=== PATIENT | male | born 1950 | race Caucasian/White ===

== ENCOUNTER 2017-05-23 09:07 | Outpatient (CLI) | payer MEDICARE, MEDICAID ==
[2017-05-23 17:57] LABS: BASOPHILS # (AUTO) 0.1 10^3/uL (0.0-0.1); BASOPHILS % (AUTO) 0.6 %; EOSINOPHILS # (AUTO) 0.1 10^3/uL (0.0-0.7); HCT - HEMATOCRIT 41.1 % (42.0-52.0); HGB - HEMOGLOBIN 14.3 g/dL (14.0-18.0); LYMPHOCYTES # (AUTO) 4.4 10^3/uL (1.5-3.5); LYMPHOCYTES % (AUTO) 41.2 %; MEAN CORPUSCULAR HEMOGLOBIN 31.4 pg (27.0-31.0); MEAN CORPUSCULAR HGB CONC 34.8 g/dL (32.0-36.0); MEAN CORPUSCULAR VOLUME 90.4 fL (80.0-94.0); MEAN PLATELET VOLUME 9.4 fL (7.4-11.4); MONOCYTES # (AUTO) 0.7 10^3/uL (0.0-1.0); MONOCYTES % (AUTO) 6.9 %; NEUTROPHILS # (AUTO) 5.4 10^3/uL (1.5-6.6); NEUTROPHILS % (AUTO) 50.3 %; RED BLOOD COUNT 4.55 10^6/uL (4.70-6.10); RED CELL DISTRIBUTION WIDTH 14.2 % (12.0-15.0); UNCORRECTED WHITE BLOOD COUNT 10.7 x10^3/uL; WHITE BLOOD COUNT 10.7 x10^3/uL (4.8-10.8)
[2017-05-23 18:16] LABS: BILIRUBIN,TOTAL 0.9 mg/dL (0.2-1.0); CALCIUM 9.5 mg/dL (8.5-10.3); CREATININE 1.1 mg/dL (0.6-1.2); POTASSIUM 4.1 mmol/L (3.5-5.0); TOTAL PROTEIN 7.1 g/dL (6.7-8.2)
== END 2017-05-23 09:08 | disposition home or self-care (01) ==
LOC: LAB.F 09:07
PROVIDERS: ATTEND Physician Assistant Medical
DX: I10 Essential (primary) hypertension (principal)
CPT/HCPCS: 36415; 80053; 85025

== ENCOUNTER 2018-08-14 11:29 | Outpatient (CLI) | payer MEDICARE, MEDICAID ==
[2018-08-14 17:37] LABS: BASOPHILS # (AUTO) 0.1 10^3/uL (0.0-0.1); BASOPHILS % (AUTO) 0.7 %; EOSINOPHILS # (AUTO) 0.1 10^3/uL (0.0-0.7); EOSINOPHILS % (AUTO) 0.7 %; HGB - HEMOGLOBIN 17.2 g/dL (14.0-18.0); LYMPHOCYTES # (AUTO) 4.6 10^3/uL (1.5-3.5); MEAN CORPUSCULAR HEMOGLOBIN 32.9 pg (27.0-31.0); MEAN CORPUSCULAR HGB CONC 33.3 g/dL (32.0-36.0); MEAN CORPUSCULAR VOLUME 98.7 fL (80.0-94.0); MEAN PLATELET VOLUME 9.5 fL (7.4-11.4); MONOCYTES # (AUTO) 0.6 10^3/uL (0.0-1.0); MONOCYTES % (AUTO) 5.1 %; NEUTROPHILS # (AUTO) 6.1 10^3/uL (1.5-6.6); NEUTROPHILS % (AUTO) 53.5 %; PLT - PLATELET COUNT 200 10^3/uL (130-450); RED BLOOD COUNT 5.24 10^6/uL (4.70-6.10); RED CELL DISTRIBUTION WIDTH 14.6 % (12.0-15.0); WHITE BLOOD COUNT 11.5 x10^3/uL (4.8-10.8)
[2018-08-14 18:39] LABS: ALBUMIN 4.3 g/dL (3.2-5.5); ALBUMIN/GLOBULIN RATIO 1.5 (1.0-2.2); CALCIUM 9.1 mg/dL (8.5-10.3); CREATININE 1.2 mg/dL (0.6-1.2); TOTAL PROTEIN 7.1 g/dL (6.7-8.2)
== END 2018-08-14 11:30 | disposition home or self-care (01) ==
LOC: LAB.F 11:29
PROVIDERS: ATTEND Registered Nurse
DX: D64.9 Anemia, unspecified (principal); I10 Essential (primary) hypertension
CPT/HCPCS: 36415; 80053; 85025

== ENCOUNTER 2018-09-03 15:24 | Outpatient (CLI) | payer MEDICARE, MEDICAID ==
[2018-09-03 19:14] LABS: FOLATE 12.42 ng/mL (5.90 - >24.8)
[2018-09-03 19:35] LABS: HB2 TOTAL 17.6 g/dL; HEMOGLOBIN A1C 0.74 g/dL
== END 2018-09-03 15:25 | disposition home or self-care (01) ==
LOC: LAB.F 15:24
PROVIDERS: ATTEND Registered Nurse
DX: R73.9 Hyperglycemia, unspecified (principal); R71.8 Other abnormality of red blood cells
CPT/HCPCS: 36415; 82607; 82746; 83036

== ENCOUNTER 2019-10-01 08:24 | Outpatient (CLI) | payer MEDICAID, MEDICARE ==
[2019-10-01 10:28] LABS: BASOPHILS # (AUTO) 0.1 10^3/uL (0.0-0.1); BASOPHILS % (AUTO) 0.8 %; EOSINOPHILS # (AUTO) 0.1 10^3/uL (0.0-0.7); EOSINOPHILS % (AUTO) 0.9 %; HGB - HEMOGLOBIN 16.7 g/dL (14.0-18.0); LYMPHOCYTES # (AUTO) 3.2 10^3/uL (1.5-3.5); LYMPHOCYTES % (AUTO) 36.1 %; MEAN CORPUSCULAR HEMOGLOBIN 33.6 pg (27.0-31.0); MEAN CORPUSCULAR HGB CONC 34.5 g/dL (32.0-36.0); MEAN CORPUSCULAR VOLUME 97.4 fL (80.0-94.0); MEAN PLATELET VOLUME 11.2 fL (7.4-11.4); MONOCYTES # (AUTO) 0.7 10^3/uL (0.0-1.0); MONOCYTES % (AUTO) 8.3 %; NEUTROPHILS # (AUTO) 4.7 10^3/uL (1.5-6.6); NEUTROPHILS % (AUTO) 53.3 %; PLT - PLATELET COUNT 158 10^3/uL (130-450); RED BLOOD COUNT 4.97 10^6/uL (4.70-6.10); RED CELL DISTRIBUTION WIDTH 12.5 % (12.0-15.0); WHITE BLOOD COUNT 8.9 x10^3/uL (4.8-10.8)
[2019-10-01 10:43] LABS: ALBUMIN 4.1 g/dL (3.2-5.5); ALBUMIN/GLOBULIN RATIO 1.5 (1.0-2.2); ALKALINE PHOSPHATASE 43 IU/L (42-121); ALT ALANINE AMINOTRANSFERASE 14 IU/L (10-60); AST ASPARTATE AMINOTRANSFERASE 29 IU/L (10-42); BILIRUBIN,TOTAL 1.4 mg/dL (0.2-1.0); BUN - BLOOD UREA NITROGEN 9 mg/dL (6-20); CALCIUM 9.1 mg/dL (8.5-10.3); CARBON DIOXIDE - CO2 28 mmol/L (21-32); CHLORIDE 98 mmol/L (101-111); CHOL/HDL RATIO 6.3 (<5.0); CHOLESTEROL 194 mg/dL; CREATININE 1.2 mg/dL (0.6-1.2); GFR - MDRD 60 (>89); GLUCOSE 131 mg/dL (70-100); HDL CHOLESTEROL 31 mg/dL; LDL CHOLESTEROL,CALCULATED 138 mg/dL; LDL/HDL RATIO 4.5 (<3.6); SODIUM 135 mmol/L (135-145); TOTAL PROTEIN 6.8 g/dL (6.7-8.2); VLDL CHOLESTEROL 25 mg/dL
[2019-10-01 10:55] LABS: HB2 TOTAL 17.3 g/dL; HEMOGLOBIN A1C 0.75 g/dL; HEMOGLOBIN A1C % 6.1 % (4.6-6.2)
== END 2019-10-01 08:25 | disposition home or self-care (01) ==
LOC: LAB.S 08:24
PROVIDERS: ATTEND Registered Nurse
DX: I10 Essential (primary) hypertension (principal); R73.03 Prediabetes; D75.89 Other specified diseases of blood and blood-forming organs; Z13.6 Encounter for screening for cardiovascular disorders
CPT/HCPCS: 36415; 80053; 80061; 83036; 83721; 85025

== ENCOUNTER 2020-01-10 09:35 | Outpatient (CLI) | payer MEDICARE | END 2020-01-10 09:36 | disposition critical access hospital (66) | LOC: EMS 09:35 | PROVIDERS: ATTEND Surgery | DX: R06.00 Dyspnea, unspecified (principal); R05 Cough; R61 Generalized hyperhidrosis | CPT/HCPCS: A0425; A0427 ==

== ENCOUNTER 2020-01-10 09:55 | Inpatient (IN) | payer MEDICARE ==
[2020-01-10] MEDS ORDERED: IPRATROPIUM/ALBUTEROL 3 ML NEB INH STA (10:03)
[2020-01-10] MEDS ORDERED: cefTRIAXone 1 GM VIAL IVP STA (10:09)
[2020-01-10] MEDS ORDERED: MORPHINE 2 MG/ML CARPUJECT IVP STA ×2 (10:09→10:59)
--- NOTE | 2020-01-10 10:16 | XRAY Report ---
Reason: chest pain Procedure Date: 01/10/2020 Accession Number: [id number] / [id number] Procedure: XR - Chest 1 View X-Ray CPT Code: 51246 Final Report FULL RESULT: PROCEDURE: Chest 1 View X-Ray INDICATIONS: chest pain TECHNIQUE: One view of the chest was acquired. COMPARISON: None. FINDINGS: Surgical changes and devices: None. No pneumothorax identified. Near complete opacification of the right hemithorax is probably due to large pleural effusion, and associated leftward tracheal deviation Left lung appears clear. Mediastinum: Mediastinal contours appear normal. Heart size is normal. Bones and chest wall: No suspicious bony lesions. Overlying soft tissues appear unremarkable. Bilateral shoulder joint degeneration. IMPRESSION: Near complete opacification of the right hemithorax presumably due to large pleural effusion with adjacent atelectasis and/or consolidation. Cannot exclude underlying neoplasm. Reviewed by: Boby Ling MD on 01/10/2020 10:14 AM PDT Approved by: Boby Ling MD on 01/10/2020 10:14 AM PDT Station ID: [id number]
[2020-01-10 10:29] LABS: BASOPHILS # (AUTO) 0.1 10^3/uL (0.0-0.1); BASOPHILS % (AUTO) 0.4 %; EOSINOPHILS % (AUTO) 0.2 %; LYMPHOCYTES # (AUTO) 2.6 10^3/uL (1.5-3.5); LYMPHOCYTES % (AUTO) 13.9 %; MEAN CORPUSCULAR HEMOGLOBIN 34.2 pg (27.0-31.0); MEAN CORPUSCULAR HGB CONC 35.4 g/dL (32.0-36.0); MEAN CORPUSCULAR VOLUME 96.8 fL (80.0-94.0); MEAN PLATELET VOLUME 10.7 fL (7.4-11.4); MONOCYTES # (AUTO) 1.3 10^3/uL (0.0-1.0); NEUTROPHILS # (AUTO) 14.3 10^3/uL (1.5-6.6); NEUTROPHILS % (AUTO) 77.1 %; PLT - PLATELET COUNT 310 10^3/uL (130-450); RED BLOOD COUNT 5.26 10^6/uL (4.70-6.10); RED CELL DISTRIBUTION WIDTH 12.2 % (12.0-15.0); WHITE BLOOD COUNT 18.5 x10^3/uL (4.8-10.8)
[2020-01-10 10:41] LABS: ALBUMIN 4.2 g/dL (3.2-5.5); ALBUMIN/GLOBULIN RATIO 1.4 (1.0-2.2); CALCIUM 9.2 mg/dL (8.5-10.3); CREATININE 1.8 mg/dL (0.6-1.2); TOTAL PROTEIN 7.3 g/dL (6.7-8.2)
[2020-01-10] MEDS ORDERED: SODIUM CHLORIDE 0.9% 1,000 ML IV STA ×2 (10:58→11:42)
[2020-01-10] MEDS ORDERED: KETOROLAC 30 MG/ML VIAL IVP STA (10:59)
[2020-01-10] MEDS ORDERED: ALBUTEROL NEB 2.5 MG/3 ML INH STA (10:59)
[2020-01-10] MEDS ORDERED: VANCOMYCIN INJ 1.5 GM in SODIUM CHLORIDE 0.9% 500 ML IV STA (11:01)
[2020-01-10] MEDS ORDERED: VANCOMYCIN INJ 1.5 GM in SODIUM CHLORIDE 0.9% 500 ML IV ONE (11:21)
--- NOTE | 2020-01-10 11:30 | XRAY Report ---
Reason: post thoracentesis Procedure Date: 01/10/2020 Accession Number: [id number] / [id number] Procedure: XR - Chest 1 View X-Ray CPT Code: 09923 Final Report FULL RESULT: PROCEDURE: Chest 1 View X-Ray INDICATIONS: post thoracentesis TECHNIQUE: One view of the chest was acquired. COMPARISON: Chest radiograph dated earlier same day FINDINGS: Surgical changes and devices: None. Decrease in previous right-sided large pleural effusion. There is scattered atelectasis and no pneumothorax. Left lung appears clear Mediastinum: Mediastinal contours appear normal. Heart size is normal. Bones and chest wall: No suspicious bony lesions. Overlying soft tissues appear unremarkable. IMPRESSION: No pneumothorax, status post right thoracentesis Reviewed by: Boby Ling MD on 01/10/2020 11:29 AM PDT Approved by: Boby Ling MD on 01/10/2020 11:29 AM PDT Station ID: [id number]
[2020-01-10] MEDS ORDERED: ONDANSETRON 4 MG/2 ML VIAL IVP PRN (11:43)
--- NOTE | 2020-01-10 11:44 | ED Physician Documentation ---
PD HPI URI - Stated complaint Stated Complaint: DIFFICULTY BREATHING - Chief complaint Chief Complaint: Resp - History obtained from History obtained from: Patient, EMS - History of Present Illness Timing - onset: How many weeks ago (2) Timing duration: Weeks (2) Timing details: Gradual onset, Still present (worsening despite course Zpack, and significantly worse the past 2-3 days.) Associated symptoms: Chills, Dry cough, Chest pain (right chest), Dyspnea. No: Fever, Nasal congestion, NVD, Bilateral edema Contributing factors: No: Sick contact, Travel, Immunocompromised, COPD / asthma Improves by: No: Medication (given Rx Zpak by PMD without improvement. No MDI nor steroids.) Worsened by: Activity, Breathing Similar symptoms before: Has not had sx before Recently seen: Clinic (a week ago and Rx Zpak.) Review of Systems Constitutional: reports: Chills, Myalgias, Fatigue, Weight Loss (just in past 2 weeks, poor intake/appetite). denies: Fever Ears: denies: Ear pain Nose: denies: Rhinorrhea / runny nose, Congestion Throat: denies: Sore throat Cardiac: reports: Chest pain / pressure. denies: Pedal edema, Calf pain Respiratory: reports: Dyspnea, Cough, Wheezing GI: reports: Nausea. denies: Abdominal Pain, Vomiting, Diarrhea : denies: Dysuria, Frequency Skin: denies: Rash, Lesions Neurologic: reports: Generalized weakness. denies: Focal weakness, Numbness, Near syncope, Altered mental status, Headache PD PAST MEDICAL HISTORY - Past Medical History Cardiovascular: None Respiratory: None Neuro: None Endocrine/Autoimmune: None - Present Medications Home Medications: Ambulatory Orders Medication Instructions Recorded Confirmed Albuterol Sulfate [Proair Hfa 17 gm INH Q4H PRN 01/10/20 01/10/20 Inhaler] Gabapentin 1,200 mg PO QPM 01/10/20 01/10/20 Metoprolol Succinate [Toprol Xl] 100 mg PO DAILY 01/10/20 01/10/20 lisinopriL [Lisinopril] 30 mg PO DAILY 01/10/20 01/10/20 - Allergies Allergies/Adverse Reactions: Allergies Allergy/AdvReac Type Severity Reaction Status Date / Time No Known Drug Allergies Allergy Verified 01/10/20 10:09 - Living Situation Living Situation: reports: Alone Living Arrangement: reports: At home - Social History Smoking Status: Former smoker Does the pt drink ETOH?: No Does the pt have substance abuse?: No - Family History Family history: denies: CAD PD ED PE NORMAL - Vitals Vital signs reviewed: Yes - General General: Alert and oriented X 3, Well developed/nourished, Other (He appears in considerable distress with tachypnea and partial sentence dyspnea. He is diaphoretic and pale and has moderate work of breathing. There are diffuse expiratory wheezes to some degree though the right lung field is significantly decreased at the bases.) - HEENT HEENT: Pharynx benign - Neck Neck: Supple, no meningeal sign, No adenopathy - Cardiac Cardiac: No: RRR (regular but tachycardic) - Respiratory Respiratory: No: Clear bilaterally (Wheezes largely on the left but some on the right and diminished breath sounds significantly on the right. There is dullness to percussion on the right base.) - Abdomen Abdomen: Soft, Non tender - Back Back: No CVA TTP - Derm Derm: No: Normal color (pale), Warm and dry (diaphoretic) - Extremities Extremities: No tenderness to palpate, Normal ROM s pain, No edema, No calf tenderness / cord - Neuro Neuro: Alert and oriented X 3, No motor deficit, No sensory deficit, Normal speech Results - Vitals Vitals: Vital Signs - 24 hr 01/10/20 01/10/20 01/10/20 10:04 10:10 10:34 Temperature 95.4 C H Heart Rate 106 H 98 102 H Respiratory 26 H 21 26 H Rate Blood Pressure 151/141 H 143/90 H O2 Saturation 89 L 96 01/10/20 01/10/20 01/10/20 10:40 10:50 11:20 Temperature Heart Rate 92 85 83 Respiratory 22 18 14 Rate Blood Pressure 129/68 120/73 105/75 O2 Saturation 96 96 97 01/10/20 01/10/20 11:22 11:30 Temperature Heart Rate 79 80 Respiratory 15 14 Rate Blood Pressure 97/66 O2 Saturation 96 Oxygen O2 Source Nasal cannula Oxygen Flow Rate 4 - EKG (time done) 10:04 Rate: Rate (enter#) (105) Rhythm: Atrial fibrillation [place]: Normal Ischemia: Normal ST segments, Non specific changes. No: ST elevation c/w ischemia, ST depression Compare to prior EKG: Old EKG unavailable - Labs Labs: Microbiology 01/10/20 10:48 Body Fluid Culture - Preliminary Other - Pleura, R Lung Laboratory Tests 01/10/20 01/10/20 01/10/20 10:20 10:20 10:20 WBC 18.5 H RBC 5.26 Hgb 18.0 Hct 50.9 MCV 96.8 H MCH 34.2 H MCHC 35.4 RDW 12.2 Plt Count 310 MPV 10.7 Neut # (Auto) 14.3 H Lymph # (Auto) 2.6 [place] # (Auto) 1.3 H Eos # (Auto) 0.0 Baso # (Auto) 0.1 Absolute Nucleated RBC 0.00 Nucleated RBC % 0.0 PT INR Sodium 125 L Potassium 5.0 Chloride 84 L Carbon Dioxide 20 L Anion Gap 21.0 H BUN 35 H Creatinine 1.8 H Estimated GFR (MDRD) 38 L Glucose 177 H Lactic Acid Calcium 9.2 Total Bilirubin 2.0 H AST 42 ALT 22 Alkaline Phosphatase 60 Troponin I High Sens 18.4 B-Natriuretic Peptide Total Protein 7.3 Albumin 4.2 Globulin 3.1 Albumin/Globulin Ratio 1.4 Lipase 79 H Fluid Source Fluid Color Fluid Clarity Fluid WBC Fluid RBC Fluid Neutrophils % Fluid Lymphocytes % Fluid Monocytes % Fluid Macrophages % 01/10/20 01/10/20 01/10/20 10:20 10:20 10:20 WBC RBC Hgb Hct MCV MCH MCHC RDW Plt Count MPV Neut # (Auto) Lymph # (Auto) [place] # (Auto) Eos # (Auto) Baso # (Auto) Absolute Nucleated RBC Nucleated RBC % PT 14.2 H INR 1.3 H Sodium Potassium Chloride Carbon Dioxide Anion Gap BUN Creatinine Estimated GFR (MDRD) Glucose Lactic Acid 4.5 H* Calcium Total Bilirubin AST ALT Alkaline Phosphatase Troponin I High Sens B-Natriuretic Peptide 210 H Total Protein Albumin Globulin Albumin/Globulin Ratio Lipase Fluid Source Fluid Color Fluid Clarity Fluid WBC Fluid RBC Fluid Neutrophils % Fluid Lymphocytes % Fluid Monocytes % Fluid Macrophages % 01/10/20 10:48 WBC RBC Hgb Hct MCV MCH MCHC RDW Plt Count MPV Neut # (Auto) Lymph # (Auto) [place] # (Auto) Eos # (Auto) Baso # (Auto) Absolute Nucleated RBC Nucleated RBC % PT INR Sodium Potassium Chloride Carbon Dioxide Anion Gap BUN Creatinine Estimated GFR (MDRD) Glucose Lactic Acid Calcium Total Bilirubin AST ALT Alkaline Phosphatase Troponin I High Sens B-Natriuretic Peptide Total Protein Albumin Globulin Albumin/Globulin Ratio Lipase Fluid Source PLEURAL Fluid Color BLOODY Fluid Clarity BLOODY Fluid WBC 1075 Fluid RBC 45532 Fluid Neutrophils % 10 Fluid Lymphocytes % 55 Fluid Monocytes % 3 Fluid Macrophages % 32 - Rads (name of study) chest xray Radiology: Prelim report reviewed (Some infiltrates on the left lung. There is a large pleural effusion on the right with crowding and atelectasis of the lung to the right upper lung field. There is some deviation of the heart to the left.), See rad report post thoracentesis Radiology: Prelim report reviewed (Well-expanded lung on the right), See rad report Procedures - Thoracentesis Preparation: Consent obtained, Sterile prep and drape, Sitting Technique: Catheter over needle, Intercostal space - enter (5), Lateral, Right, Ultrasound used Fluid: Clear, Bloody, Sent for cell count, Sent for gram stain, Sent for culture Aftercare: CXR obtained, No pneumo, Patient tolerated well PD MEDICAL DECISION MAKING - ED course Complexity details: re-evaluated patient (Considerably improved after thoracentesis. Sats at 95% via NC. Work of breathing reduced. Vital are stable. He also responded well to nebulizer treatments. ), considered differential (Sounds like bronchitis and developing pneumonia. Will get chest x-ray and labs. He is having wheezing component so give nebulizers as well. Will start antibiotics for presumed bacterial infection.), d/w patient - Critical Care Time(min): 50 Time Includes: Direct patient care, Reassess patient, Coordinate care Data interpretation: Labs, Pulse ox, CXR Procedures excluded from critical care time: See progress note Departure - Departure Disposition: [facility] DC/Xfer Clinical Impression: Pleural effusion Dyspnea Qualifiers: Dyspnea type: dyspnea on exertion Qualified Code(s): R06.00 - Dyspnea, unspecified Pneumonia Qualifiers: Pneumonia type: due to unspecified organism Laterality: bilateral Lung location: unspecified part of lung Qualified Code(s): J18.9 - Pneumonia, unspecified organism Condition: Stable Record reviewed to determine appropriate education?: Yes Discharge Date/Time: 01/10/20 12:45
[2020-01-10 12:03] LABS: INR 1.3 (0.8-1.2); PT - PROTHROMBIN TIME 14.2 secs (9.9-12.6)
[2020-01-10 12:16] LABS: BF CLARITY BLOODY; BF COLOR BLOODY; BF SOURCE PLEURAL; CC,BF RBC 85000 /mm^3
[2020-01-10 12:59] LABS: LYMPHOCYTES %,BODY FLUID 55 %; MACROPHAGES %,BODY FLUID 32 %; MONOCYTES %,BODY FLUID 3 %
[2020-01-10] MEDS: DEXTROSE 5%-0.9% NACL 1,000 ML IV SCH ×2 (13:28→21:11)
--- NOTE | 2020-01-10 17:03 | ADVANCE CARE PLANNING NOTE ---
Advance Care Planning - Planning Encounter Date: 01/10/20 Time: 16:00 Purpose: To establish patient's wishes regarding CODE STATUS. Parties in Attendance: I spoke to the patient in his room, in his bed with head of bed elevated. Decisional Capacity of the Patient: He has good memory and full decisional capacity. - Encounter Subjective/Patient's Story: This is a 69-year-old white male who raised his son from age 7, is a single parent, used to be a smoker, has been a vegetarian all his life. The patient thinks that he had a stroke several years ago when he "1 day arose from gardening and everything was like an acid trip" and then he was dizzy. He sought no medical attention. He also has chronic colitis and gets diarrhea if he eats certain foods. He used to be an alcoholic drinking a 12 pack of beer a day then down to 2 beers a day maximum, which changed when he had the stroke. In the last 2 weeks he has had no beer because he has been having respiratory complaints and severe dyspnea and orthopnea. He saw a substitute PCP and was given a Z-Gino which made no impact. He is so short of breath that he is gasping for air and was brought to the ER today. Objective/Medical Story: 69-year-old white male with history of ex-smoking, ex-alcoholic, hypertension, possible old stroke, possible irritable bowel syndrome who presents after 2 weeks of cough and worsening shortness of breath with orthopnea and pleuritic chest pain. In the ER he was desaturating and chest x-ray found nearly in the entire lung dalila out from a pleural effusion. He had thoracentesis which took out 3.5 L of fluid. He started to cough and get pain but immediately had respiratory improvement. Blood pressure dropped and he is admitted to the ICU. 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 He does not want to be put on any life prol onging machines. Plan: Will fill out and sign a new POLST form. Change CODE STATUS to DNR. Code Status: Do Not Attempt Resuscitation Time spent on advance care plannin min
--- NOTE | 2020-01-10 17:15 | PHARMACY PROGRESS NOTE ---
- Best Possible Medication History Admit Date and Time: 01/10/20 1143 Processed by: Pharmacy Medication History completed: Yes Patient Interview: Completed Secondary Source(s): Pharmacy records, Insurance records As the person ultimately responsible for medication therapy, providers are able to order a medication from an existing home medication list in [facility] via the "Reconcile Routine" prior to Confirmation of that medication by sales support technician. Such practice is discouraged except when the physician, in their clinical judgment, deems that a medical need exists for a medication without regard to previous use.
[2020-01-10] MEDS: SODIUM CHLORIDE FLUSH 0.9% 10 ML SYRINGE IVP SCH (18:16)
--- NOTE | 2020-01-10 18:19 | HISTORY & PHYSICAL EXAMINATION ---
DATE OF SERVICE: 01/10/2020 Physician: Yajaira Lincoln MD HISTORY OF PRESENT ILLNESS: This is a 69-year-old white male, vegetarian, who has a history of hypertension, possible old stroke 3 years ago, ex-alcoholic, drinking a 12-pack of beer a day, which he decreased to 2 beers a day when he had the stroke. He has a history of possible colitis/irritable bowel syndrome. The patient quit smoking several years ago. He does not have a standing history of chronic obstructive pulmonary disease. The patient started to develop a cough 2-3 weeks ago with slowly, but progressively severely worsening shortness of breath. He saw his PCP in office and was given a Z-Gino, which he took religiously and had no improvement. The shortness of breath has been especially worse over the last 2 days with orthopnea and pleuritic pain when he lays on the right. He has been sleeping sitting up. He called EMS because of the severe air hunger and was diaphoretic, and presented to the ER, even after nebulizer treatment en route, with guppy breathing, desaturations of 85% on room air. He was given DuoNeb and Albuterol in the ER. A chest x-ray was done that showed a nearly complete white out of the right lung from a large pleural effusion. He underwent thoracentesis by the emergency room doctor and 3.5 liters of blood- tinged fluid was removed. The chest x-ray had a slight left shift of mediastinum, and on post-tap x-ray, there was marked improvement in aeration of the right lung down to a [id number] pleural effusion left over. The patient had initial blood pressure in the 120s, which dropped to 97 systolic after the thoracentesis, and he will be now admitted to the ICU. PAST MEDICAL HISTORY: Ex-smoker, ex-alcohol abuse, irritable bowel syndrome/colitis, vegetarian, hypertension, old stroke. ALLERGIES: NONE. MEDICATIONS 1. Metoprolol succinate 100 mg daily. 2. Lisinopril 30 mg daily. 3. Gabapentin 1200 mg every night. 4. Albuterol inhaler p.r.n. 5. 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 The patient uses a cane to walk and says that he has right foot that is weak ever since the stroke and his speech is somewhat slow. A comprehensive review of systems was performed and the pertinent positives are listed, the rest are negative. FAMILY HISTORY: No inherited diseases that he knows of. SOCIAL HISTORY: The patient lives alone. He was a of many years, raised his son from the age of 7 as a single parent. 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 He has not driven a car in about 3 years, ever since the time of his stroke. He is a vegetarian all his life. There is a history of alcohol abuse, which he stopped 3 years ago. He used to drink a 12-pack of beer a day, decreased that to 2 beers a day when he had the stroke, and in these last 2 weeks during shortness of breath has had no beers. He does not describe going through alcohol withdrawal, however. There is no IV drug abuse history. He quit smoking 3 years ago. PHYSICAL EXAMINATION GENERAL: Middle-aged white male who appears older than his age. He is diaphoretic and poorly kempt, but not in respiratory distress. VITAL SIGNS: Blood pressure 124/81 now, heart rate 76, oxygen saturation 95% on 4 liters nasal cannula. HEENT: Reveals very poor dentition with a receding gum line and very dry oral mucosa. NECK: No JVD, no carotid bruits. CHEST: Diminished breath sounds diffusely on the right, as well as on the left. No wheezes or rales are heard. There is no rub on the right. HEART: Sounds very distant. No murmur heard. ABDOMEN: Soft, mildly distended, nontender. Normal bowel sounds. EXTREMITIES: No clubbing, cyanosis or edema. NEUROLOGIC: He has very slow and deliberate speech, but otherwise is grossly intact. LABORATORY DATA: Sodium 125, potassium 5.0, carbon dioxide 20, anion gap 21, BUN 35, creatinine 1.8, glucose 177. Lactic acid 4.5. Troponin 18 and then 20. BNP 210. Lipase 79. INR 1.3. White blood count 19.5 with MCV of 96, platelet count 310. The pleural fluid had a bloody color with 1075 white cells, numerous red cells with 10% neutrophils. IMAGING: Chest x-ray reported in the body of the text above. EKG: Multifocal atrial tachycardia, low voltage in the limb leads, poor R-wave progression, artifact present from electrical interference. There is no old EKG available for comparison. IMPRESSION/DIAGNOSES 1. Sepsis. 2. Pleural effusion. 3. Acute respiratory failure with hypoxia. 4. Hyponatremia. 5. Acute kidney injury. 6. Multifocal atrial tachycardia. 7. History of CVA with residual R foot weak and slow speech. 8. Hx HTN PLAN: Admit the patient to the ICU because of the hypotension and sepsis. Start telemetry. Begin IV fluids. Culture sputum if he makes any, and blood cultures were sent from the ER. He received empiric antibiotics and will continue with those, which were IV Rocephin and IV Vancomycin, since he already received a course of Zithromax and may have failed it. Repeat a chest x-ray, but preferably get a CT scan of the chest to evaluate for any tumors, postobstructive pneumonia, scarring or emphysematous changes of the lungs. COVID test was sent and is pending. Order droplet isolation. await results of pleural fluid LDH, protein, cell count, and culture. Follow his BMP daily, watching the sodium, BUN and creatinine. Since multifocal atrial tachycardia is a very common diagnosis in people with acute pulmonary problems, suspect he does have underlying COPD with the history of smoking. There is an abnormally elevated MCV and INR, consistent with the alcohol use or abuse history. Follow his CBC daily. Continue with a vegetarian diet. Hold his blood pressure medications because of the low blood pressure. Continue with his gabapentin for the neuropathy. CODE STATUS: DNR. DEEP VENOUS THROMBOSIS PROPHYLAXIS: SCDs. ATTESTATION: The patient is expected to be discharged or transferred to another facility within 96 hours: Yes. TD: 01/10/2020 17:29 DYLON
[2020-01-10] MEDS ORDERED: ALBUTEROL 1 PUFF INH STA (19:55)
[2020-01-10] MEDS: IPRATROPIUM/ALBUTEROL 3 ML NEB INH SCH ×3 (19:59→20:23)
[2020-01-10] MEDS ORDERED: FAMOTIDINE 20 MG TABLET PO SCH (21:00)
[2020-01-10] MEDS ORDERED: GABAPENTIN 300 MG CAPSULE PO SCH (21:00)
[2020-01-10] MEDS: guaiFENesin 600 MG TABLET PO SCH (21:08)
[2020-01-10] MEDS: MORPHINE 2 MG/ML CARPUJECT IVP PRN (21:10)
[2020-01-11] MEDS ORDERED: ALBUTEROL 1 PUFF INH PRN (03:19)
[2020-01-11] MEDS: SODIUM CHLORIDE FLUSH 0.9% 10 ML SYRINGE IVP SCH ×4 (03:52→19:34)
[2020-01-11 05:55] LABS: BASOPHILS % (AUTO) 0.3 %; EOSINOPHILS % (AUTO) 0.1 %; HGB - HEMOGLOBIN 16.2 g/dL (14.0-18.0); LYMPHOCYTES % (AUTO) 7.2 %; MEAN CORPUSCULAR HGB CONC 35.9 g/dL (32.0-36.0); MEAN CORPUSCULAR VOLUME 94.5 fL (80.0-94.0); MEAN PLATELET VOLUME 10.8 fL (7.4-11.4); MONOCYTES % (AUTO) 7.8 %; NEUTROPHILS % (AUTO) 83.4 %; PLT - PLATELET COUNT 238 10^3/uL (130-450); RED BLOOD COUNT 4.77 10^6/uL (4.70-6.10); RED CELL DISTRIBUTION WIDTH 12.2 % (12.0-15.0); WHITE BLOOD COUNT 19.3 x10^3/uL (4.8-10.8)
[2020-01-11 06:01] LABS: BAND NEUTROPHILS % (MANUAL) 0 %
[2020-01-11 06:09] LABS: CALCIUM 8.2 mg/dL (8.5-10.3); CREATININE 1.3 mg/dL (0.6-1.2); PHOSPHORUS 3.2 mg/dL (2.5-4.6)
[2020-01-11 06:12] LABS: ABNORMAL LYMPHS % (MANUAL) 1 %; DIFFERENTIAL COMMENT MANUAL DIFFERENTIAL; LYMPHOCYTES # (MANUAL) 1.2 10^3/uL (1.5-3.5); LYMPHOCYTES % (MANUAL) 5 %; MONOCYTES # (MANUAL) 2.1 10^3/uL (0.0-1.0); PLATELET ESTIMATE, MANUAL NORMAL (130-450,000) (NORMAL); PLATELET MORPHOLOGY NORMAL APPEARANCE (NORMAL); RBC MORPHOLOGY (MULTIPLE) NORMAL APPEARANCE (NORMAL)
[2020-01-11] MEDS: DEXTROSE 5%-0.9% NACL 1,000 ML IV SCH (07:01)
[2020-01-11] MEDS: IPRATROPIUM/ALBUTEROL 3 ML NEB INH SCH ×4 (07:47→17:47)
--- NOTE | 2020-01-11 07:57 | PROVIDER PROGRESS NOTE ---
Subjective - Prog Note Date Prog Note Date: 01/11/20 - Subjective Subjective: He reports his dyspnea has significantly improved today. He still feels his voice is a little bit hoarse. Denies any chest pain. He still feels a little bit short of breath when ambulating but attributes this to being deconditioned given he has been sedentary the past few weeks due to his dyspnea. Current Medications - Current Medications Current Medications: Active Medications Acetaminophen (Tylenol) 650 mg PO Q4HR PRN PRN Reason: Pain or Fever > 38C (100.4F) Albuterol () 2.5 mg INH RTQ4H PRN PRN Reason: Wheezing Albuterol (Mdi: Albuterol) 2 puffs INH Q4H PRN PRN Reason: Dyspnea Albuterol/Ipratropium (Duoneb) 3 ml INH RTQID [facility] Last Admin: 01/11/20 07:47 Dose: 3 ml Aspirin (Ecotrin) 81 mg PO DAILY [facility] Last Admin: 01/11/20 08:45 Dose: 81 mg Gabapentin (Neurontin) 1,200 mg PO QPM [facility] Last Admin: 01/10/20 21:07 Dose: 1,200 mg Guaifenesin (Mucinex) 600 mg PO BID [facility] Last Admin: 01/11/20 08:45 Dose: 600 mg Ceftriaxone Sodium 2 gm/ (Sodium Chloride) 100 mls @ 200 mls/hr IV DAILY [facility] Last Admin: 01/11/20 08:45 Dose: 200 mls/hr Vancomycin HCl 1 gm/Vancomycin HCl 500 mg/ Sodium Chloride 500 mls @ 167 mls/hr IV Q24H [facility] Lactated Ringer's (Lr) 1,000 mls @ 100 mls/hr IV .Q10H [facility] Last Admin: 01/11/20 09:06 Dose: 100 mls/hr Morphine Sulfate (Morphine (Carpuject)) 2 mg IVP Q2HR PRN PRN Reason: Pain 8 to 10 Last Admin: 01/10/20 21:10 Dose: 2 mg Ondansetron HCl (Zofran Inj) 4 mg IVP Q6HR PRN PRN Reason: Nausea / Vomiting Sodium Chloride (Normal Saline Flush 0.9%) 10 ml IVP 0100,0900,1700 [facility] Last Admin: 01/11/20 09:05 Dose: 10 ml Sodium Chloride (Normal Saline Flush 0.9%) 10 ml IVP PRN PRN PRN Reason: NEEDED PER PROVIDER ORDERS Vancomycin HCl (Vancomycin-Pharmacy To Dose) 1 each ONCE PRN PRN Reason: PER PHARMACY Stop: 01/20/20 11:52 Albuterol Sulfate [Proair Hfa Inhaler] 17 gm INH Q4H PRN 01/10/20 Gabapentin 1,200 mg PO QPM 01/10/20 Metoprolol Succinate [Toprol Xl] 100 mg PO DAILY 01/10/20 lisinopriL [Lisinopril] 30 mg PO DAILY 01/10/20 Objective - Vital Signs/Intake & Output Reviewed Vital Signs: Yes Vital Signs: Vital Signs Temp Pulse Pulse Resp BP Pulse Ox 01/11/20 07:48 80 21 01/11/20 07:00 36.7 C 83 19 119/76 98 01/11/20 06:00 67 19 120/85 H 98 01/11/20 05:00 36.6 C 72 15 140/84 H 97 01/11/20 04:00 60 14 100/78 99 Intake & Output: Intake & Output 01/08/20 01/09/20 01/10/20 01/11/20 23:59 23:59 23:59 23:59 Intake Total 2596.667 1433.334 Output Total 3600 Balance -6888.646 5409.334 - Objective General Appearance: positive: No acute distress Eyes Bilateral: positive: Normal inspection ENT: positive: ENT inspection nml, Other (Nasal cannula in place) Neck: positive: Nml inspection Respiratory: positive: No respiratory distress, Other (Diminished breath sounds in right base.). negative: Wheezes, Rales Cardiovascular: positive: Regular rate & rhythm, No murmur. negative: Tachycardia, Bradycardia, Systolic murmur Abdomen: positive: Non-tender, No distention. negative: Tenderness Skin: positive: Warm, Dry Extremities: positive: Full ROM, No pedal edema Neurologic/Psychiatric: positive: Oriented x3, Motor nml. negative: Disoriented to person, Disoriented to place, Disoriented to time - Lab Results Fish Bones: 01/11/20 05:15 01/11/20 05:15 Other Labs: Lab Results x24hrs 01/11/20 01/11/20 01/10/20 Range/Units 05:15 05:15 13:38 WBC 19.3 H (4.8-10.8) x10^3/uL RBC 4.77 (4.70-6.10) 10^6/uL Hgb 16.2 (14.0-18.0) g/dL Hct 45.1 (42.0-52.0) % MCV 94.5 H (80.0-94.0) fL MCH 34.0 H (27.0-31.0) pg MCHC 35.9 (32.0-36.0) g/dL RDW 12.2 (12.0-15.0) % Plt Count 238 (130-450) 10^3/uL MPV 10.8 (7.4-11.4) fL Neut # (Auto) Not Reportable (1.5-6.6) 10^3/uL Lymph # (Auto) Not Reportable (1.5-3.5) 10^3/uL [place] # (Auto) Not Reportable (0.0-1.0) 10^3/uL Eos # (Auto) Not Reportable (0.0-0.7) 10^3/uL Baso # (Auto) Not Reportable (0.0-0.1) 10^3/uL Absolute Nucleated RBC Not Reportable x10^3/uL Total Counted 100 Band Neuts % (Manual) 0 (0 - 10) % Abnorm Lymph % (Manual) 1 % Nucleated RBC % Not Reportable /100WBC Neutrophils # (Manual) 16.0 H (1.5-6.6) 10^3/uL Lymphocytes # (Manual) 1.2 L (1.5-3.5) 10^3/uL Monocytes # (Manual) 2.1 H (0.0-1.0) 10^3/uL Eosinophils # (Manual) 0.0 (0-0.7) 10^3/uL Basophils # (Manual) 0.0 (0-0.1) 10^3/uL Differential Comment MANUAL DIFFERENTIAL WBC Morphology NORMAL APPEARANCE (NORMAL) Platelet Estimate NORMAL (130-450,000) (NORMAL) Platelet Morphology NORMAL APPEARANCE (NORMAL) RBC Morph Micro Appear NORMAL APPEARANCE (NORMAL) PT (9.9-12.6) secs INR (0.8-1.2) Sodium 127 L (135-145) mmol/L Potassium 4.4 (3.5-5.0) mmol/L Chloride 98 L (101-111) mmol/L Carbon Dioxide 20 L (21-32) mmol/L Anion Gap 9.0 (6-13) BUN 29 H (6-20) mg/dL Creatinine 1.3 H (0.6-1.2) mg/dL Estimated GFR (MDRD) 55 L (>89) Glucose 193 H (70-100) mg/dL Lactic Acid (0.5-2.2) mmol/L Calcium 8.2 L (8.5-10.3) mg/dL Phosphorus 3.2 (2.5-4.6) mg/dL Magnesium 2.0 (1.7-2.8) mg/dL Total Bilirubin (0.2-1.0) mg/dL AST (10-42) IU/L ALT (10-60) IU/L Alkaline Phosphatase (42-121) IU/L CK-MB (CK-2) 13.1 H (0.6-6.3) ng/mL Troponin I High Sens (2.3-19.7) ng/L B-Natriuretic Peptide (5-100) pg/mL Total Protein (6.7-8.2) g/dL Albumin (3.2-5.5) g/dL Globulin (2.1-4.2) g/dL Albumin/Globulin Ratio (1.0-2.2) Lipase (22-51) U/L Fluid Source Fluid Color Fluid Clarity Fluid WBC /mm^3 Fluid RBC /mm^3 Fluid Neutrophils % % Fluid Lymphocytes % % Fluid Monocytes % % Fluid Macrophages % % Nasal Screen MRSA (PCR) (NEGATIVE) Coronavirus (PCR) 01/10/20 01/10/20 01/10/20 Range/Units 13:38 12:50 12:20 WBC (4.8-10.8) x10^3/uL RBC (4.70-6.10) 10^6/uL Hgb (14.0-18.0) g/dL Hct (42.0-52.0) % MCV (80.0-94.0) fL MCH (27.0-31.0) pg MCHC (32.0-36.0) g/dL RDW (12.0-15.0) % Plt Count (130-450) 10^3/uL MPV (7.4-11.4) fL Neut # (Auto) (1.5-6.6) 10^3/uL Lymph # (Auto) (1.5-3.5) 10^3/uL [place] # (Auto) (0.0-1.0) 10^3/uL Eos # (Auto) (0.0-0.7) 10^3/uL Baso # (Auto) (0.0-0.1) 10^3/uL Absolute Nucleated RBC x10^3/uL Total Counted Band Neuts % (Manual) (0 - 10) % Abnorm Lymph % (Manual) % Nucleated RBC % /100WBC Neutrophils # (Manual) (1.5-6.6) 10^3/uL Lymphocytes # (Manual) (1.5-3.5) 10^3/uL Monocytes # (Manual) (0.0-1.0) 10^3/uL Eosinophils # (Manual) (0-0.7) 10^3/uL Basophils # (Manual) (0-0.1) 10^3/uL Differential Comment WBC Morphology (NORMAL) Platelet Estimate (NORMAL) Platelet Morphology (NORMAL) RBC Morph Micro Appear (NORMAL) PT (9.9-12.6) secs INR (0.8-1.2) Sodium (135-145) mmol/L Potassium (3.5-5.0) mmol/L Chloride (101-111) mmol/L Carbon Dioxide (21-32) mmol/L Anion Gap (6-13) BUN (6-20) mg/dL Creatinine (0.6-1.2) mg/dL Estimated GFR (MDRD) (>89) Glucose (70-100) mg/dL Lactic Acid (0.5-2.2) mmol/L Calcium (8.5-10.3) mg/dL Phosphorus (2.5-4.6) mg/dL Magnesium (1.7-2.8) mg/dL Total Bilirubin (0.2-1.0) mg/dL AST (10-42) IU/L ALT (10-60) IU/L Alkaline Phosphatase (42-121) IU/L CK-MB (CK-2) (0.6-6.3) ng/mL Troponin I High Sens 20.3 H* (2.3-19.7) ng/L B-Natriuretic Peptide (5-100) pg/mL Total Protein (6.7-8.2) g/dL Albumin (3.2-5.5) g/dL Globulin (2.1-4.2) g/dL Albumin/Globulin Ratio (1.0-2.2) Lipase (22-51) U/L Fluid Source Fluid Color Fluid Clarity Fluid WBC /mm^3 Fluid RBC /mm^3 Fluid Neutrophils % % Fluid Lymphocytes % % Fluid Monocytes % % Fluid Macrophages % % Nasal Screen MRSA (PCR) NEGATIVE (NEGATIVE) Coronavirus (PCR) NEGATIVE 01/10/20 01/10/20 01/10/20 Range/Units 10:48 10:20 10:20 WBC (4.8-10.8) x10^3/uL RBC (4.70-6.10) 10^6/uL Hgb (14.0-18.0) g/dL Hct (42.0-52.0) % MCV (80.0-94.0) fL MCH (27.0-31.0) pg MCHC (32.0-36.0) g/dL RDW (12.0-15.0) % Plt Count (130-450) 10^3/uL MPV (7.4-11.4) fL Neut # (Auto) (1.5-6.6) 10^3/uL Lymph # (Auto) (1.5-3.5) 10^3/uL [place] # (Auto) (0.0-1.0) 10^3/uL Eos # (Auto) (0.0-0.7) 10^3/uL Baso # (Auto) (0.0-0.1) 10^3/uL Absolute Nucleated RBC x10^3/uL Total Counted Band Neuts % (Manual) (0 - 10) % Abnorm Lymph % (Manual) % Nucleated RBC % /100WBC Neutrophils # (Manual) (1.5-6.6) 10^3/uL Lymphocytes # (Manual) (1.5-3.5) 10^3/uL Monocytes # (Manual) (0.0-1.0) 10^3/uL Eosinophils # (Manual) (0-0.7) 10^3/uL Basophils # (Manual) (0-0.1) 10^3/uL Differential Comment WBC Morphology (NORMAL) Platelet Estimate (NORMAL) Platelet Morphology (NORMAL) RBC Morph Micro Appear (NORMAL) PT 14.2 H (9.9-12.6) secs INR 1.3 H (0.8-1.2) Sodium (135-145) mmol/L Potassium (3.5-5.0) mmol/L Chloride (101-111) mmol/L Carbon Dioxide (21-32) mmol/L Anion Gap (6-13) BUN (6-20) mg/dL Creatinine (0.6-1.2) mg/dL Estimated GFR (MDRD) (>89) Glucose (70-100) mg/dL Lactic Acid 4.5 H* (0.5-2.2) mmol/L Calcium (8.5-10.3) mg/dL Phosphorus (2.5-4.6) mg/dL Magnesium (1.7-2.8) mg/dL Total Bilirubin (0.2-1.0) mg/dL AST (10-42) IU/L ALT (10-60) IU/L Alkaline Phosphatase (42-121) IU/L CK-MB (CK-2) (0.6-6.3) ng/mL Troponin I High Sens (2.3-19.7) ng/L B-Natriuretic Peptide (5-100) pg/mL Total Protein (6.7-8.2) g/dL Albumin (3.2-5.5) g/dL Globulin (2.1-4.2) g/dL Albumin/Globulin Ratio (1.0-2.2) Lipase (22-51) U/L Fluid Source PLEURAL Fluid Color BLOODY Fluid Clarity BLOODY Fluid WBC 1075 /mm^3 Fluid RBC 06429 /mm^3 Fluid Neutrophils % 10 % Fluid Lymphocytes % 55 % Fluid Monocytes % 3 % Fluid Macrophages % 32 % Nasal Screen MRSA (PCR) (NEGATIVE) Coronavirus (PCR) 01/10/20 01/10/20 01/10/20 Range/Units 10:20 10:20 10:20 WBC (4.8-10.8) x10^3/uL RBC (4.70-6.10) 10^6/uL Hgb (14.0-18.0) g/dL Hct (42.0-52.0) % MCV (80.0-94.0) fL MCH (27.0-31.0) pg MCHC (32.0-36.0) g/dL RDW (12.0-15.0) % Plt Count (130-450) 10^3/uL MPV (7.4-11.4) fL Neut # (Auto) (1.5-6.6) 10^3/uL Lymph # (Auto) (1.5-3.5) 10^3/uL [place] # (Auto) (0.0-1.0) 10^3/uL Eos # (Auto) (0.0-0.7) 10^3/uL Baso # (Auto) (0.0-0.1) 10^3/uL Absolute Nucleated RBC x10^3/uL Total Counted Band Neuts % (Manual) (0 - 10) % Abnorm Lymph % (Manual) % Nucleated RBC % /100WBC Neutrophils # (Manual) (1.5-6.6) 10^3/uL Lymphocytes # (Manual) (1.5-3.5) 10^3/uL Monocytes # (Manual) (0.0-1.0) 10^3/uL Eosinophils # (Manual) (0-0.7) 10^3/uL Basophils # (Manual) (0-0.1) 10^3/uL Differential Comment WBC Morphology (NORMAL) Platelet Estimate (NORMAL) Platelet Morphology (NORMAL) RBC Morph Micro Appear (NORMAL) PT (9.9-12.6) secs INR (0.8-1.2) Sodium 125 L (135-145) mmol/L Potassium 5.0 (3.5-5.0) mmol/L Chloride 84 L (101-111) mmol/L Carbon Dioxide 20 L (21-32) mmol/L Anion Gap 21.0 H (6-13) BUN 35 H (6-20) mg/dL Creatinine 1.8 H (0.6-1.2) mg/dL Estimated GFR (MDRD) 38 L (>89) Glucose 177 H (70-100) mg/dL Lactic Acid (0.5-2.2) mmol/L Calcium 9.2 (8.5-10.3) mg/dL Phosphorus (2.5-4.6) mg/dL Magnesium (1.7-2.8) mg/dL Total Bilirubin 2.0 H (0.2-1.0) mg/dL AST 42 (10-42) IU/L ALT 22 (10-60) IU/L Alkaline Phosphatase 60 (42-121) IU/L CK-MB (CK-2) (0.6-6.3) ng/mL Troponin I High Sens 18.4 (2.3-19.7) ng/L B-Natriuretic Peptide 210 H (5-100) pg/mL Total Protein 7.3 (6.7-8.2) g/dL Albumin 4.2 (3.2-5.5) g/dL Globulin 3.1 (2.1-4.2) g/dL Albumin/Globulin Ratio 1.4 (1.0-2.2) Lipase 79 H (22-51) U/L Fluid Source Fluid Color Fluid Clarity Fluid WBC /mm^3 Fluid RBC /mm^3 Fluid Neutrophils % % Fluid Lymphocytes % % Fluid Monocytes % % Fluid Macrophages % % Nasal Screen MRSA (PCR) (NEGATIVE) Coronavirus (PCR) 01/10/20 Range/Units 10:20 WBC 18.5 H (4.8-10.8) x10^3/uL RBC 5.26 (4.70-6.10) 10^6/uL Hgb 18.0 (14.0-18.0) g/dL Hct 50.9 (42.0-52.0) % MCV 96.8 H (80.0-94.0) fL MCH 34.2 H (27.0-31.0) pg MCHC 35.4 (32.0-36.0) g/dL RDW 12.2 (12.0-15.0) % Plt Count 310 (130-450) 10^3/uL MPV 10.7 (7.4-11.4) fL Neut # (Auto) 14.3 H (1.5-6.6) 10^3/uL Lymph # (Auto) 2.6 (1.5-3.5) 10^3/uL [place] # (Auto) 1.3 H (0.0-1.0) 10^3/uL Eos # (Auto) 0.0 (0.0-0.7) 10^3/uL Baso # (Auto) 0.1 (0.0-0.1) 10^3/uL Absolute Nucleated RBC 0.00 x10^3/uL Total Counted Band Neuts % (Manual) (0 - 10) % Abnorm Lymph % (Manual) % Nucleated RBC % 0.0 /100WBC Neutrophils # (Manual) (1.5-6.6) 10^3/uL Lymphocytes # (Manual) (1.5-3.5) 10^3/uL Monocytes # (Manual) (0.0-1.0) 10^3/uL Eosinophils # (Manual) (0-0.7) 10^3/uL Basophils # (Manual) (0-0.1) 10^3/uL Differential Comment WBC Morphology (NORMAL) Platelet Estimate (NORMAL) Platelet Morphology (NORMAL) RBC Morph Micro Appear (NORMAL) PT (9.9-12.6) secs INR (0.8-1.2) Sodium (135-145) mmol/L Potassium (3.5-5.0) mmol/L Chloride (101-111) mmol/L Carbon Dioxide (21-32) mmol/L Anion Gap (6-13) BUN (6-20) mg/dL Creatinine (0.6-1.2) mg/dL Estimated GFR (MDRD) (>89) Glucose (70-100) mg/dL Lactic Acid (0.5-2.2) mmol/L Calcium (8.5-10.3) mg/dL Phosphorus (2.5-4.6) mg/dL Magnesium (1.7-2.8) mg/dL Total Bilirubin (0.2-1.0) mg/dL AST (10-42) IU/L ALT (10-60) IU/L Alkaline Phosphatase (42-121) IU/L CK-MB (CK-2) (0.6-6.3) ng/mL Troponin I High Sens (2.3-19.7) ng/L B-Natriuretic Peptide (5-100) pg/mL Total Protein (6.7-8.2) g/dL Albumin (3.2-5.5) g/dL Globulin (2.1-4.2) g/dL Albumin/Globulin Ratio (1.0-2.2) Lipase (22-51) U/L Fluid Source Fluid Color Fluid Clarity Fluid WBC /mm^3 Fluid RBC /mm^3 Fluid Neutrophils % % Fluid Lymphocytes % % Fluid Monocytes % % Fluid Macrophages % % Nasal Screen MRSA (PCR) (NEGATIVE) Coronavirus (PCR) Assessment/Plan - Problem List (1) Acute respiratory failure with hypoxia Impression: This is secondary to the large right pleural effusion. He is saturating high 90s on 4 L via nasal cannula and this was decreased to 2 L and he maintained oxygen saturation in the mid 90s. We will continue to wean as tolerated. He is status post thoracentesis with 3.5 L drained. No evidence of pneumothorax. There is no obvious infiltrate on imaging. Given his leukocytosis, we will continue him on vancomycin and ceftriaxone IV. Continue supplemental oxygen as needed. We will transfer him to [facility] status. (2) Pleural effusion Impression: He had a large right-sided pleural effusion status post thoracentesis with 3.5 L of blood-tinged fluid removed. Fluid studies showed WBC of 1075 with 55% lymphocytes. Culture showed WBCs but no organisms. Given his smoking history and lymphocytic predominant effusion, I am concerned that this is malignant in nature. I ordered for a cytology to be obtained on the pleural fluid from yesterday. I did discuss with the patient today regarding the concern for malignancy and recommended obtaining a CT of the chest to evaluate for a mass. He states that he is a lifelong Yaz[place] and that he would not want treatment for cancer if he were to have that diagnosis. He is not sure if he would want to know if he would even have a lung mass. He prefers to follow-up with his primary care provider on outpatient basis and therefore we will hold off on obtaining a CT of the chest at this time. I did discuss with the patient that if this is a malignant effusion, there is a high chance of recurrence and occasionally an aspira catheter is warranted for symptom relief. He does understand this. The cytology will be follow-up on outpatient basis by his primary care provider. Even if it were negative, the suspicion is still high for malignancy. (3) Hyponatremia Impression: Sodium has improved to 127 today. Suspect this is hypovolemic hyponatremia as he appears dry on exam. He was also hypotensive and had acute kidney injury on admission. We will continue to hydrate him with IV fluids and monitor his sodium. (4) Acute kidney injury Impression: This was likely prerenal in nature given he was hypotensive and hypovolemic on exam. His creatinine has improved to 1.3 today. We will continue with IV fluids and monitor his renal function. (5) Leukocytosis Impression: His white count has increased today to 19.3 from 18.5 admission. There is a left shift present. I am not sure if this is reactive or possibly due to underlying infection. His chest x-rays not reveal any obvious infiltrate. He has also been afebrile. PLeural fluid studies showed WBCs but no organisms. He had been on Zithromax on outpatient basis. We will keep him on vancomycin and ceftriaxone IV for the time being and continue to monitor his white count. We will check a urinalysis. Blood cultures were not drawn and I feel at this time they would not be of benefit unless he were to have a fever. (6) Multifocal atrial tachycardia Impression: This likely related to his underlying lung disease. He has remained rate controlled. Electrolytes have been optimized. We will continue his home meto prolol. Monitor on telemetry. (7) Hypertension Impression: His blood pressure has been stable without lisinopril and metoprolol. He has had no further episodes of hypotension. We will continue his metoprolol given the multifocal atrial tachycardia. We will hold lisinopril this time given he had acute kidney injury.
[2020-01-11 07:59] LABS: VBG PH 7.34 (7.31-7.41)
[2020-01-11] MEDS: guaiFENesin 600 MG TABLET PO SCH ×2 (08:45→20:40)
[2020-01-11] MEDS: cefTRIAXone 2 GM in SODIUM CHLORIDE 0.9% MINIBAG 100 ML IV SCH (08:45)
[2020-01-11] MEDS: ASPIRIN EC 81 MG TABLET PO SCH (08:45)
[2020-01-11] MEDS: LACTATED RINGERS 1,000 ML IV SCH ×2 (09:06→18:21)
[2020-01-11] MEDS ORDERED: LACTATED RINGERS 500 ML IV ONE (10:24)
[2020-01-11] MEDS: VANCOMYCIN INJ 1 GM, VANCOMYCIN INJ 500 MG in SODIUM CHLORIDE 0.9% 500 ML IV SCH (11:40)
[2020-01-11] MEDS: LACTOBACILLUS RHAMNOSUS GG CAPSULE PO SCH (16:26)
[2020-01-11] MEDS ORDERED: METOPROLOL SUCCINATE 50 MG TABLET PO ONE (18:30)
[2020-01-11] MEDS: MORPHINE 2 MG/ML CARPUJECT IVP PRN ×2 (19:35→22:55)
[2020-01-11] MEDS: GABAPENTIN 400 MG CAPSULE PO SCH (20:39)
[2020-01-11 21:56] LABS: BILIRUBIN,URINE NEGATIVE (NEGATIVE); GLUCOSE, URINE (UA) NEGATIVE (NEGATIVE); KETONES,URINE (UA) NEGATIVE (NEGATIVE); LEUKOCYTE ESTERASE, URINE NEGATIVE (NEGATIVE); NITRITE,URINE NEGATIVE (NEGATIVE); OCCULT BLOOD,URINE NEGATIVE (NEGATIVE); PROTEIN,URINE NEGATIVE (NEGATIVE); UROBILINOGEN,URINE 0.2 (NORMAL) E.U./dL (NORMAL)
[2020-01-11 21:57] LABS: CLARITY,URINE CLEAR (CLEAR)
[2020-01-11 22:03] LABS: BACTERIA,URINE None Seen /HPF (None Seen); RBC,URINE None Seen /HPF (0-5); SQUAMOUS EPITHELIAL CELL,UR RARE Squamous (<= Few)
[2020-01-11 22:04] LABS: MUCUS,URINE Few Strands
[2020-01-11] MEDS: SODIUM CHLORIDE FLUSH 0.9% 10 ML SYRINGE IVP PRN (22:54)
[2020-01-12] MEDS: ALBUTEROL NEB 2.5 MG/3 ML INH PRN (01:58)
[2020-01-12] MEDS: MORPHINE 2 MG/ML CARPUJECT IVP PRN ×6 (02:19→22:05)
[2020-01-12] MEDS: SODIUM CHLORIDE FLUSH 0.9% 10 ML SYRINGE IVP PRN ×2 (02:19→22:05)
[2020-01-12] MEDS: LACTATED RINGERS 1,000 ML IV SCH (02:22)
[2020-01-12 05:16] LABS: BASOPHILS # (AUTO) 0.1 10^3/uL (0.0-0.1); BASOPHILS % (AUTO) 0.4 %; HGB - HEMOGLOBIN 16.8 g/dL (14.0-18.0); LYMPHOCYTES # (AUTO) 2.8 10^3/uL (1.5-3.5); LYMPHOCYTES % (AUTO) 13.7 %; MEAN CORPUSCULAR HEMOGLOBIN 32.6 pg (27.0-31.0); MEAN CORPUSCULAR HGB CONC 33.9 g/dL (32.0-36.0); MEAN CORPUSCULAR VOLUME 96.1 fL (80.0-94.0); MEAN PLATELET VOLUME 10.9 fL (7.4-11.4); MONOCYTES # (AUTO) 1.9 10^3/uL (0.0-1.0); MONOCYTES % (AUTO) 9.4 %; NEUTROPHILS % (AUTO) 74.8 %; PLT - PLATELET COUNT 241 10^3/uL (130-450); RED BLOOD COUNT 5.16 10^6/uL (4.70-6.10); RED CELL DISTRIBUTION WIDTH 12.4 % (12.0-15.0); WHITE BLOOD COUNT 20.1 x10^3/uL (4.8-10.8)
[2020-01-12 05:22] LABS: CALCIUM 8.6 mg/dL (8.5-10.3); CREATININE 1.2 mg/dL (0.6-1.2)
[2020-01-12 05:24] LABS: HB2 TOTAL 17.9 g/dL; HEMOGLOBIN A1C 0.75 g/dL
[2020-01-12 06:09] LABS: DIFFERENTIAL COMMENT MANUAL=AUTO DIFF; PLATELET ESTIMATE, MANUAL NORMAL (130-450,000) (NORMAL); RBC MORPHOLOGY (MULTIPLE) NORMAL APPEARANCE (NORMAL)
[2020-01-12] MEDS ORDERED: LACTATED RINGERS 1,000 ML IV ONE (07:44)
[2020-01-12] MEDS: METOPROLOL SUCCINATE 50 MG TABLET PO SCH (08:33)
[2020-01-12] MEDS: ASPIRIN EC 81 MG TABLET PO SCH (08:33)
[2020-01-12] MEDS: guaiFENesin 600 MG TABLET PO SCH ×2 (08:33→20:47)
[2020-01-12] MEDS: LACTOBACILLUS RHAMNOSUS GG CAPSULE PO SCH (08:33)
[2020-01-12] MEDS: cefTRIAXone 2 GM in SODIUM CHLORIDE 0.9% MINIBAG 100 ML IV SCH (08:34)
[2020-01-12] MEDS: IPRATROPIUM/ALBUTEROL 3 ML NEB INH SCH ×4 (08:52→19:40)
[2020-01-12] MEDS: CEFEPIME 2 GM in SODIUM CHLORIDE 0.9% MINIBAG 100 ML IV SCH ×3 (09:21→21:23)
--- NOTE | 2020-01-12 09:29 | PROVIDER PROGRESS NOTE ---
Subjective - Prog Note Date Prog Note Date: 01/12/20 - Subjective Subjective: He reports feeling more short of breath today. Continues to have a productive cough. Denies any chest pain. He feels worse overall today compared to yesterday. Current Medications - Current Medications Current Medications: Active Medications Acetaminophen (Tylenol) 650 mg PO Q4HR PRN PRN Reason: Pain or Fever > 38C (100.4F) Last Admin: 01/12/20 12:42 Dose: 650 mg Albuterol () 2.5 mg INH RTQ4H PRN PRN Reason: Wheezing Last Admin: 01/12/20 01:58 Dose: 2.5 mg Albuterol (Mdi: Albuterol) 2 puffs INH Q4H PRN PRN Reason: Dyspnea Albuterol/Ipratropium (Duoneb) 3 ml INH RTQID [facility] Last Admin: 01/12/20 13:24 Dose: 3 ml Apixaban (Eliquis) 5 mg PO BID [facility] Gabapentin (Neurontin) 1,200 mg PO QPM [facility] Last Admin: 01/11/20 20:39 Dose: 1,200 mg Guaifenesin (Mucinex) 600 mg PO BID [facility] Last Admin: 01/12/20 08:33 Dose: 600 mg Vancomycin HCl 1 gm/Vancomycin HCl 500 mg/ Sodium Chloride 500 mls @ 167 mls/hr IV Q24H [facility] Last Admin: 01/12/20 11:18 Dose: 167 mls/hr Cefepime HCl 2 gm/ Sodium (Chloride) 100 mls @ 200 mls/hr IV TID [facility] Last Infusion: 01/12/20 10:02 Dose: Infused Metronidazole (Flagyl 500 Mg/100 Ml) 500 mg in 100 mls @ 100 mls/hr IV Q8H [facility] Lactobacillus Rhamnosus (Culturelle) 1 cap PO DAILY [facility] Last Admin: 01/12/20 08:33 Dose: 1 cap Metoprolol Succinate (Toprol Xl) 100 mg PO DAILY [facility] Last Admin: 01/12/20 08:33 Dose: 100 mg Morphine Sulfate (Morphine (Carpuject)) 2 mg IVP Q2HR PRN PRN Reason: Pain 8 to 10 Last Admin: 01/12/20 13:49 Dose: 2 mg Ondansetron HCl (Zofran Inj) 4 mg IVP Q6HR PRN PRN Reason: Nausea / Vomiting Sodium Chloride (Normal Saline Flush 0.9%) 10 ml IVP 0100,0900,1700 ALFREDO Last Admin: 01/12/20 10:03 Dose: Not Given Sodium Chloride (Normal Saline Flush 0.9%) 10 ml IVP PRN PRN PRN Reason: NEEDED PER PROVIDER ORDERS Last Admin: 01/12/20 02:19 Dose: 10 ml Albuterol Sulfate [Proair Hfa Inhaler] 17 gm INH Q4H PRN 01/10/20 Gabapentin 1,200 mg PO QPM 01/10/20 lisinopriL [Lisinopril] 30 mg PO DAILY 01/10/20 Metoprolol Succinate [Toprol Xl] 100 mg PO DAILY 01/11/20 Objective - Vital Signs/Intake & Output Reviewed Vital Signs: Yes Vital Signs: Vital Signs x48h Temp Pulse Pulse Resp BP Pulse Ox 01/12/20 08:54 93 16 01/12/20 08:28 36.6 C 95 25 H 136/94 H 01/12/20 05:05 88 13 108/72 97 01/12/20 01:59 89 20 Intake & Output: Intake & Output 01/09/20 01/10/20 01/11/20 01/12/20 23:59 23:59 23:59 23:59 Intake Total 2596.667 4476.667 1661.667 Output Total 3600 2 Balance -3651.926 7623.667 1661.667 - Objective General Appearance: positive: Alert, Mild distress Eyes Bilateral: positive: Normal inspection ENT: positive: ENT inspection nml Neck: positive: Nml inspection Respiratory: positive: Rhonchi, Other (Diminished breath sounds in right bases. Tachypnic.) Cardiovascular: positive: No murmur, Irregularly irregular, Tachycardia. negative: Bradycardia, Systolic murmur Abdomen: positive: Non-tender, No distention. negative: Tenderness, Guarding, Rebound Skin: positive: Warm, Dry Extremities: positive: No pedal edema Neurologic/Psychiatric: positive: Oriented x3, Motor nml. negative: Disoriented to person, Disoriented to place, Disoriented to time - Lab Results Fish Bones: 01/12/20 04:35 01/12/20 04:35 Other Labs: Lab Results x24hrs 01/12/20 01/12/20 01/12/20 Range/Units 04:35 04:35 04:35 WBC (4.8-10.8) x10^3/uL RBC (4.70-6.10) 10^6/uL Hgb (14.0-18.0) g/dL Hct (42.0-52.0) % MCV (80.0-94.0) fL MCH (27.0-31.0) pg MCHC (32.0-36.0) g/dL RDW (12.0-15.0) % Plt Count (130-450) 10^3/uL MPV (7.4-11.4) fL Neut # (Auto) (1.5-6.6) 10^3/uL Lymph # (Auto) (1.5-3.5) 10^3/uL [place] # (Auto) (0.0-1.0) 10^3/uL Eos # (Auto) (0.0-0.7) 10^3/uL Baso # (Auto) (0.0-0.1) 10^3/uL Absolute Nucleated RBC x10^3/uL Band Neuts % (Manual) Abnorm Lymph % (Manual) Nucleated RBC % /100WBC Neutrophils # (Manual) Lymphocytes # (Manual) Monocytes # (Manual) Eosinophils # (Manual) Basophils # (Manual) Differential Comment Platelet Estimate (NORMAL) RBC Morph Micro Appear (NORMAL) Sodium 131 L (135-145) mmol/L Potassium 4.8 (3.5-5.0) mmol/L Chloride 99 L (101-111) mmol/L Carbon Dioxide 23 (21-32) mmol/L Anion Gap 9.0 (6-13) BUN 20 (6-20) mg/dL Creatinine 1.2 (0.6-1.2) mg/dL Estimated GFR (MDRD) 60 L (>89) Glucose 136 H (70-100) mg/dL Glycated Hemoglobin 6.0 (4.6-6.2) % Estim Average Glucose 126 H (70-100) Lactic Acid 2.3 H (0.5-2.2) mmol/L Calcium 8.6 (8.5-10.3) mg/dL Troponin I High Sens (2.3-19.7) ng/L Urine Color Urine Clarity (CLEAR) Urine pH (5.0-7.5) PH Ur Specific [place] (1.002-1.030) Urine Protein (NEGATIVE) mg/dL Urine Glucose (UA) (NEGATIVE) mg/dL Urine Ketones (NEGATIVE) mg/dL Urine Occult Blood (NEGATIVE) Urine Nitrite (NEGATIVE) Urine Bilirubin (NEGATIVE) Urine Urobilinogen (NORMAL) E.U./dL Ur Leukocyte Esterase (NEGATIVE) Urine RBC (0-5) /HPF Urine WBC (0-3) /HPF Ur Squamous Epith Cells (<= Few) Urine Bacteria (None Seen) /HPF Urine Mucus Urine Culture Comments 01/12/20 01/11/20 01/11/20 Range/Units 04:35 21:45 15:15 WBC 20.1 H (4.8-10.8) x10^3/uL RBC 5.16 (4.70-6.10) 10^6/uL Hgb 16.8 (14.0-18.0) g/dL Hct 49.6 (42.0-52.0) % MCV 96.1 H (80.0-94.0) fL MCH 32.6 H (27.0-31.0) pg MCHC 33.9 (32.0-36.0) g/dL RDW 12.4 (12.0-15.0) % Plt Count 241 (130-450) 10^3/uL MPV 10.9 (7.4-11.4) fL Neut # (Auto) 15.0 H (1.5-6.6) 10^3/uL Lymph # (Auto) 2.8 (1.5-3.5) 10^3/uL [place] # (Auto) 1.9 H (0.0-1.0) 10^3/uL Eos # (Auto) 0.0 (0.0-0.7) 10^3/uL Baso # (Auto) 0.1 (0.0-0.1) 10^3/uL Absolute Nucleated RBC 0.00 x10^3/uL Band Neuts % (Manual) Not Reportable Abnorm Lymph % (Manual) Not Reportable Nucleated RBC % 0.0 /100WBC Neutrophils # (Manual) Not Reportable Lymphocytes # (Manual) Not Reportable Monocytes # (Manual) Not Reportable Eosinophils # (Manual) Not Reportable Basophils # (Manual) Not Reportable Differential Comment MANUAL=AUTO DIFF Platelet Estimate NORMAL (130-450,000) (NORMAL) RBC Morph Micro Appear NORMAL APPEARANCE (NORMAL) Sodium (135-145) mmol/L Potassium (3.5-5.0) mmol/L Chloride (101-111) mmol/L Carbon Dioxide (21-32) mmol/L Anion Gap (6-13) BUN (6-20) mg/dL Creatinine (0.6-1.2) mg/dL Estimated GFR (MDRD) (>89) Glucose (70-100) mg/dL Glycated Hemoglobin (4.6-6.2) % Estim Average Glucose (70-100) Lactic Acid 2.4 H (0.5-2.2) mmol/L Calcium (8.5-10.3) mg/dL Troponin I High Sens (2.3-19.7) ng/L Urine Color YELLOW Urine Clarity CLEAR (CLEAR) Urine pH 6.0 (5.0-7.5) PH Ur Specific [place] 1.010 (1.002-1.030) Urine Protein NEGATIVE (NEGATIVE) mg/dL Urine Glucose (UA) NEGATIVE (NEGATIVE) mg/dL Urine Ketones NEGATIVE (NEGATIVE) mg/dL Urine Occult Blood NEGATIVE (NEGATIVE) Urine Nitrite NEGATIVE (NEGATIVE) Urine Bilirubin NEGATIVE (NEGATIVE) Urine Urobilinogen 0.2 (NORMAL) (NORMAL) E.U./dL Ur Leukocyte Esterase NEGATIVE (NEGATIVE) Urine RBC None Seen (0-5) /HPF Urine WBC 0-3 (0-3) /HPF Ur Squamous Epith Cells RARE Squamous (<= Few) Urine Bacteria None Seen (None Seen) /HPF Urine Mucus Few Strands Urine Culture Comments NOT INDICATED 01/11/20 01/11/20 Range/Units 09:47 09:47 WBC (4.8-10.8) x10^3/uL RBC (4.70-6.10) 10^6/uL Hgb (14.0-18.0) g/dL Hct (42.0-52.0) % MCV (80.0-94.0) fL MCH (27.0-31.0) pg MCHC (32.0-36.0) g/dL RDW (12.0-15.0) % Plt Count (130-450) 10^3/uL MPV (7.4-11.4) fL Neut # (Auto) (1.5-6.6) 10^3/uL Lymph # (Auto) (1.5-3.5) 10^3/uL [place] # (Auto) (0.0-1.0) 10^3/uL Eos # (Auto) (0.0-0.7) 10^3/uL Baso # (Auto) (0.0-0.1) 10^3/uL Absolute Nucleated RBC x10^3/uL Band Neuts % (Manual) Abnorm Lymph % (Manual) Nucleated RBC % /100WBC Neutrophils # (Manual) Lymphocytes # (Manual) Monocytes # (Manual) Eosinophils # (Manual) Basophils # (Manual) Differential Comment Platelet Estimate (NORMAL) RBC Morph Micro Appear (NORMAL) Sodium (135-145) mmol/L Potassium (3.5-5.0) mmol/L Chloride (101-111) mmol/L Carbon Dioxide (21-32) mmol/L Anion Gap (6-13) BUN (6-20) mg/dL Creatinine (0.6-1.2) mg/dL Estimated GFR (MDRD) (>89) Glucose (70-100) mg/dL Glycated Hemoglobin (4.6-6.2) % Estim Average Glucose (70-100) Lactic Acid 3.2 H* (0.5-2.2) mmol/L Calcium (8.5-10.3) mg/dL Troponin I High Sens 12.1 (2.3-19.7) ng/L Urine Color Urine Clarity (CLEAR) Urine pH (5.0-7.5) PH Ur Specific [place] (1.002-1.030) Urine Protein (NEGATIVE) mg/dL Urine Glucose (UA) (NEGATIVE) mg/dL Urine Ketones (NEGATIVE) mg/dL Urine Occult Blood (NEGATIVE) Urine Nitrite (NEGATIVE) Urine Bilirubin (NEGATIVE) Urine Urobilinogen (NORMAL) E.U./dL Ur Leukocyte Esterase (NEGATIVE) Urine RBC (0-5) /HPF Urine WBC (0-3) /HPF Ur Squamous Epith Cells (<= Few) Urine Bacteria (None Seen) /HPF Urine Mucus Urine Culture Comments ABX Reporting Has patient been on IV antibiotics over the past 48 hours?: Yes Assessment/Plan - Problem List (1) Pleural effusion Impression: He is no longer hypoxic but he is quite more tachypneic today and is dyspneic at rest. I am concerned him he may have reaccumulation of the pleural effusion. Yesterday he did not want to obtain a CT of the chest and he did not want to know if he were to have a lung mass or not. Today he is agreeable to a CT of the chest and so we will obtain one with IV contrast to evaluate for malignancy as I suspect this effusion is malignant in nature given it is lymphocytic predominant and his smoking history. Cytology is pending. If there is evidence of recurrence of a pleural effusion, we will need to repeat thoracentesis. He may ultimately need an Aspira catheter as if he does not want treatment for his malignancy and this will continue to accumulate. (2) Community acquired pneumonia Impression: There was concern for associated pneumonia on admission you started empirically on vancomycin and ceftriaxone. He continues to have a productive cough and his white count continues to increase. We will broaden his antibiotics to vancomycin and cefepime IV today. We will obtain a CT of the chest for further evaluation of the effusion and to evaluate for consolidation. If there is concern for postobstructive infiltrate, will also add Flagyl. (3) Hyponatremia Impression: This is likely hypovolemic hyponatremia. This continues to improve with IV fluids. We will continue IV hydration for today and monitor his sodium. (4) Acute kidney injury Impression: This was likely prerenal acute kidney injury given his hypovolemic state. His creatinine has improved from 1.8-1.2. Renal function is now back to baseline. We will continue to monitor his renal function while he is hospitalized. (5) Leukocytosis Impression: Suspect this may be secondary to underlying pneumonia although this could also be reactive. Given the concern for consolidation, we will broaden his antibiotics to vancomycin and cefepime. We will obtain further imaging with CT of the chest. Continue to trend his white count. (6) Atrial flutter Impression: He has had evidence of 8 fibrillation and this morning he is in atrial flutter. This is a new diagnosis for him. Echocardiogram revealed a preserved action fraction with no significant valvular disease. We will continue his metoprolol as he is rate controlled on this. We will check a TSH. We discussed anticoag ulation and he is agreeable to starting Eliquis. We will start this once we can confirm that he will not need any further procedures in the immediate future. (7) Hypertension Impression: His blood pressure has been stable on just metoprolol. We will continue to hold his lisinopril as he is normotensive. If he does become hypertensive then we will resume the lisinopril. (8) Acute respiratory failure with hypoxia Impression: This is secondary to the pleural effusion has resolved. He is no longer hypoxic but is still quite tachypneic.
[2020-01-12] MEDS: SODIUM CHLORIDE FLUSH 0.9% 10 ML SYRINGE IVP SCH ×3 (10:03→19:56)
[2020-01-12] MEDS ORDERED: IOVERSOL 320 100 ML VIAL IVP ONE (10:06)
[2020-01-12] MEDS: VANCOMYCIN INJ 1 GM, VANCOMYCIN INJ 500 MG in SODIUM CHLORIDE 0.9% 500 ML IV SCH (11:18)
--- NOTE | 2020-01-12 11:33 | CT Report ---
Reason: HYPOXIA, PLEURAL EFFUSION, MALIGNANCEY SUSPECTED Procedure Date: 01/12/2020 Accession Number: [id number] / [id number] Procedure: CT - CHEST W CPT Code: Final Report FULL RESULT: PROCEDURE: CHEST W INDICATIONS: HYPOXIA, PLEURAL EFFUSION, MALIGNANCEY SUSPECTED CONTRAST: IV CONTRAST: Optiray 320 ml: 100 PO CONTRAST: *NO PO CONTRAST TECHNIQUE: After the administration of intravenous contrast, 5 mm thick sections acquired from the pulmonary apices to the posterior costophrenic angles. 7 mm thick coronal MIP reformats were acquired. For radiation dose reduction, the following was used: automated exposure control, adjustment of mA and/or kV according to patient size. COMPARISON: None. FINDINGS: Image quality: Excellent. Lungs and pleura: No pneumothorax identified. Extensive ill-defined consolidation with bronchovascular distribution seen within the right upper lobe and right middle lobe. Large right pleural effusion is seen with adjacent atelectasis. There are numerous areas of ill-defined, nodular pleural thickening with enhancement highly suspicious for malignant exudative effusion. Diffuse scarring/atelectasis in the left lung. Diffuse peribronchial cuffing suggestive of nonspecific bronchitis and/or reactive airways disease. Mediastinum: Heart size is normal. No pericardial effusion. Multiple enlarged mediastinal lymph nodes, for example 2.4 x 2.3 cm right paratracheal lymph node seen on image 21/3. Subcarinal lymphadenopathy also noted. Thoracic aorta and central pulmonary arteries are normal in size. Esophagus is normal in caliber. No hiatal hernia. Bones and chest wall: No suspicious bony lesions. No vertebral body compression fractures. Multilevel spondylosis. No axillary or supraclavicular adenopathy by size criteria. Thyroid gland unremarkable. Hypodense lesion seen within the right lobe the liver measuring 2 cm is technically indeterminate. Cannot exclude metastatic lesion. Ill-defined faint enhancement present in the dome the liver on image 55 series 3, nonspecific. IMPRESSION: Large right pleural effusion, with areas of nodular pleural thickening and enhancement, most suspicious for malignant effusion. Recommend correlation with pleural fluid analysis. Ill-defined consolidation within the right upper lobe and right middle lobe with bronchovascular distribution, suspicious for lymphangitic spread of tumor versus confluent mass. Enlarged mediastinal lymphadenopathy as detailed above Hypodense ill-defined lesion within the right hepatic lobe, technically indeterminate. Further evaluation with liver protocol contrast enhanced MRI could be performed as necessary. Reviewed by: Boby Ling MD on 01/12/2020 11:32 AM PDT Approved by: Boby Ling MD on 01/12/2020 11:32 AM PDT Station ID: [id number]
[2020-01-12 11:47] LABS: VANCOMYCIN,TROUGH 10.9 ug/mL (10.0-20.0)
[2020-01-12] MEDS: ACETAMINOPHEN 325 MG TABLET PO PRN (12:42)
[2020-01-12] MEDS: metroNIDAZOLE 500 MG/100 ML 500 MG/100 ML BAG IV SCH ×2 (15:18→22:06)
--- NOTE | 2020-01-12 16:36 | PHARMACY PROGRESS NOTE ---
- Therapy Status Vancomycin regimen day #: 3 Therapy status: Trough subtherapeutic Basis for treatment: Empirical Treatment indication: Suspected sepsis Trough goal: 15-20 Concurrent antibiotics: Cefepime and Metronidazole - YUMIKO Risk Risk level for Acute Kidney Injury: Moderate Acute Kidney Injury risk factors: Goal trough >15, Chronic baseline hyperten john, Diabetes, Admission to ICU, Acute hypotensive event, Sepsis - Monitoring and Recommendation Clinical response to treatment: I&O Previous 24 hours 01/10/20 01/11/20 01/12/20 23:59 23:59 23:59 Intake Total 2596.667 4476.667 4191.667 Output Total 3600 2 Balance -0173.508 4575.667 4191.667 Lab Results 01/12/20 01/11/20 01/10/20 04:35 05:15 10:20 BUN 20 29 H 35 H Creatinine 1.2 1.3 H 1.8 H Estimated GFR (MDRD) 60 L 55 L 38 L Vancomycin Monitoring 01/12/20 11:33 Vancomycin Trough 10.9 Cultures 01/10/20 10:48 Other - Pleura, R Lung Body Fluid Culture - Preliminary Monitoring plan: Daily serum creatinine, Suggest ongoing fluid replacement Next trough due prior to maintenance dose #: 4 Next trough due (date/time): 01/15/2020 at 1130 Areas for additional monitoring: IV to PO when appropriate, Therapy de- escalation based on culture results, Acute Kidney Injury Pharmacy recommendation: Increase dose
--- NOTE | 2020-01-12 20:32 | XRAY Report ---
Reason: acute sob, pleural effusion Procedure Date: 01/12/2020 Accession Number: [id number] / [id number] Procedure: XR - Chest 1 View X-Ray CPT Code: 01173 Final Report FULL RESULT: PROCEDURE: Chest 1 View X-Ray INDICATIONS: acute sob, pleural effusion TECHNIQUE: One view of the chest was acquired. COMPARISON: Prior chest plain film dated 01/10/2020 reviewed FINDINGS: Surgical changes and devices: None. Lungs and pleura: No pleural effusions or pneumothorax. Lungs are significantly worsened alveolar consolidation and apparent increasing pleural effusion. Mediastinum: Mediastinal contours appear normal. Heart size is normal. Bones and chest wall: No suspicious bony lesions. Overlying soft tissues appear unremarkable. IMPRESSION: Significant worsening right lung pneumonia, increasing right pleural effusion. Follow-up by contrast-enhanced CT scanning may be warranted. Reviewed by: Arnoldo Yang MD on 01/12/2020 8:31 PM PDT Approved by: Arnoldo Yang MD on 01/12/2020 8:31 PM PDT Station ID: [id number]
[2020-01-12] MEDS: GABAPENTIN 400 MG CAPSULE PO SCH (20:47)
[2020-01-12] MEDS ORDERED: APIXABAN 5 MG TABLET PO SCH (21:00)
[2020-01-13] MEDS: MORPHINE 2 MG/ML CARPUJECT IVP PRN ×5 (02:31→20:49)
[2020-01-13] MEDS: SODIUM CHLORIDE FLUSH 0.9% 10 ML SYRINGE IVP PRN ×3 (02:31→06:07)
[2020-01-13] MEDS: ALBUTEROL NEB 2.5 MG/3 ML INH PRN (02:33)
[2020-01-13] MEDS: CEFEPIME 2 GM in SODIUM CHLORIDE 0.9% MINIBAG 100 ML IV SCH ×3 (05:28→22:10)
[2020-01-13] MEDS: metroNIDAZOLE 500 MG/100 ML 500 MG/100 ML BAG IV SCH ×3 (06:06→22:45)
[2020-01-13] MEDS: IPRATROPIUM/ALBUTEROL 3 ML NEB INH SCH ×4 (07:02→19:17)
[2020-01-13] MEDS: METOPROLOL SUCCINATE 50 MG TABLET PO SCH (08:49)
[2020-01-13] MEDS: LACTOBACILLUS RHAMNOSUS GG CAPSULE PO SCH (08:49)
[2020-01-13] MEDS: guaiFENesin 600 MG TABLET PO SCH ×2 (08:49→20:43)
[2020-01-13 08:52] LABS: BASOPHILS % (AUTO) 0.6 %; EOSINOPHILS % (AUTO) 0.1 %; HGB - HEMOGLOBIN 17.8 g/dL (14.0-18.0); LYMPHOCYTES % (AUTO) 14.5 %; MEAN CORPUSCULAR HEMOGLOBIN 34.6 pg (27.0-31.0); MEAN CORPUSCULAR HGB CONC 34.7 g/dL (32.0-36.0); MEAN CORPUSCULAR VOLUME 99.6 fL (80.0-94.0); MEAN PLATELET VOLUME 11.1 fL (7.4-11.4); MONOCYTES % (AUTO) 9.3 %; NEUTROPHILS % (AUTO) 72.6 %; PLT - PLATELET COUNT 282 10^3/uL (130-450); RED BLOOD COUNT 5.15 10^6/uL (4.70-6.10); RED CELL DISTRIBUTION WIDTH 12.8 % (12.0-15.0); WHITE BLOOD COUNT 19.2 x10^3/uL (4.8-10.8)
[2020-01-13 08:58] LABS: CALCIUM 8.7 mg/dL (8.5-10.3); CREATININE 1.3 mg/dL (0.6-1.2)
[2020-01-13] MEDS ORDERED: MORPHINE 2 MG/ML CARPUJECT IVP PRN (09:08)
[2020-01-13 09:28] LABS: ABNORMAL LYMPHS % (MANUAL) 0 %
[2020-01-13 09:31] LABS: BAND NEUTROPHILS % (MANUAL) 4 %; LYMPHOCYTES # (MANUAL) 2.3 10^3/uL (1.5-3.5); LYMPHOCYTES % (MANUAL) 3 %; MONOCYTES # (MANUAL) 1.2 10^3/uL (0.0-1.0); MYELOCYTES % (MANUAL) 3 %
[2020-01-13 09:32] LABS: DIFFERENTIAL COMMENT MANUAL DIFFERENTIAL
--- NOTE | 2020-01-13 11:28 | Ultrasound Report ---
Reason: Therapeutic for probable malignanat effusion, SOB Procedure Date: 01/13/2020 Accession Number: [id number] / [id number] Procedure: US - Thoracentesis Puncture CPT Code: Final Report FULL RESULT: PROCEDURE: Thoracentesis Puncture INDICATIONS: Therapeutic for probable malignant effusion, SOB TECHNIQUE: The indications, alternatives, benefits, risks, and complications of the procedure were explained to the patient. Written informed consent was obtained and placed in the chart. The chest was examined sonographically, and an appropriate site was chosen for thoracentesis. The skin was prepared and draped in the usual sterile fashion, and 1% lidocaine was infiltrated from the skin down through the pleural surface. A 19-gauge catheter-covered needle was then introduced into the pleural space, the catheter was advanced and the needle was withdrawn, and thereafter pleural fluid was aspirated. The catheter was then removed and a dressing was applied. COMPARISON: None. FINDINGS: Access site: Right lower hemithorax. Needle: One-Step centesis catheter with introducer needle. Fluid volume and description: Serous sanguinous. 2.6 liters removed. Fluid sent for diagnostic testing: Cytology Medications: 1% lidocaine for local anaesthesia. Complications: Patient did report mild lightheadedness and urged to cough. Mild tachycardia in the 110 these per minute range was visualized on the patient's monitored during the procedure. However, the patient's heart rate normalized to the 90 bpm range. Overall the procedure was well tolerated and the patient reports a significant improvement in his breathing status. Please see separately dictated postprocedural CXR. IMPRESSION: Successful ultrasound-guided right thoracentesis, 2.6 L removed. Reviewed by: Stephen Campoverde MD on 01/13/2020 11:27 AM PDT Approved by: Stephen Campoverde MD on 01/13/2020 11:27 AM PDT Station ID: [id number]
--- NOTE | 2020-01-13 11:37 | PROVIDER PROGRESS NOTE ---
Assessment/Plan - Problem List (1) Pleural effusion Assessment/Plan: PRN IV morphine was ordered for pain or fever or dyspnea. He was reluctant to take it and then last night, he agreed. It did help his feeling of air hunger and tachypnea. He is speaking with slurred/slower speech today, likely due to m orphine treatment this morning. He was even more tachypneic today and was dyspneic at rest. He was requesting the thoracentesis that was discussed yesterday as possibly being needed to be repeated, when yesterday's chest imaging showed a reaccumulation of a large R pleural effusion. The IR, Dr Stephen Campoverde, performed thoracentesis at bedside, and 2.5 L of cranberry colored fluid was removed. He had immediate relief of dyspnea and tachypnea. He may ultimately need pleurodesis or an Aspira catheter as if he does not want treatment for his malignancy if this pleural fluid continues to re-accumulate. Will decrease the dose and frequency of prn morphine IV for dyspnea, since he is starting to have garbled speech today. We will transfer the patient from [facility] into Intensive Care Unit because of the need for so much morphine. (2) Dyspnea Qualifiers: Dyspnea type: dyspnea on exertion Qualified Code(s): R06.00 - Dyspnea, unspecified Assessment/Plan: Multifactorial: Mostly from his large pleural effusion, also from his lung mass which is likely cancer which may be obstructing airways and the possible pneumonia which could be a postobstructive pneumonia. He is getting Mucinex from pulmonary toilet and Acapella device. Continue supplemental oxygen, nebs as well and management of the CAP and reaccumulated effusion. We will change the albuterol to Xopenex because of tachycardia. (3) Community acquired pneumonia Assessment/Plan: Presumptive diagnosis was CAP, at admission He continues to have a productive cough and his white count continues to increase. He was on empiric Zithromax and ceftriaxone which were stopped and his antibiotic coverage was broadened. He is now on IV Vanco, IV cefepime and IV Flagyl. Await any sputum or pleural fluid culture results. (4) Mass of right lung Assessment/Plan: He at first refused a CT of the chest, then agreed. The CT chest showed a large pleural effusion, a mass vs consilodation, lymphadenopathy and a liver mass (possible met). We suspect this pleural effusion is malignant in nature given it is lymphocytic predominant, is a transudate, is bloody, reaccumulated so quickly (in 48-72 hours), and his smoking history. Cytology was requested from today's thoracentesis flu. Need to await the tissue type in order to advise further, he will need an On cologist. (5) Hyponatremia Assessment/Plan: This is likely hypovolemic hyponatremia. Also SIADH is possible in the setting of small cell lung cancer. His daily serum sodium continues to improve with IV fluids. We will continue IV hydration for today and monitor his sodium. (6) Acute kidney injury Assessment/Plan: This was likely prerenal acute kidney injury given his hypovolemic state. His creatinine improved from 1.8 to 1.2, then up to 1.3 today. Continue gentle hydration. We will continue to monitor his renal function while he is hospitalized. (7) Leukocytosis Assessment/Plan: It is up to 20 K today, despite no steroid treatment. Suspect this may be secondary to underlying pneumonia although this could also be reactive. Given the concern for consolidation, we broadened his antibiotics to vancomycin, flagyl and cefepime. (8) Atrial flutter Assessment/Plan: He had MAT at admission which is common with pulmonary patients. This degenerated into atrial fib-flutter yesterday. This is a new diagnosis for him. TSH was normal. Echocardiogram revealed a preserved LV ejection fraction with no significant valvular disease. Today the heart rate is 100-110 in a flutter. It may be slightly elevated because of his distress when he was short of breath this morning. Continue his home metoprolol dose and treatment of pain and air hunger. Will not give any anticoagulant or antiplatelet agent (for stroke prophylaxis), due to bloody pleural fluid, which could become hemorrhagic. (9) Hypertension Assessment/Plan: His blood pressure has been stable on just metoprolol. We will continue to hold his lisinopril as he is normotensive. If he does become hypertensive then we wi ll resume the lisinopril. (10) Poor dentition Assessment/Plan: His upper gums are receding severely. The patient states it is because he has had no appetite and ate nearly no protein in the last 2-1/2 weeks while he was getting weaker. We discussed his diet here since he is a vegetarian. He told me that he has "worked it out with nutrition". He does not like Ensure because it reminds him of milk. Will order Peridex gargle then spit, and continue with good toothbrushing. - Current Meds Current Meds: Current Medications Generic Name Dose Route Start Last Admin Trade Name Freq PRN Reason Stop Dose Admin Acetaminophen 650 mg 01/10/20 11:43 01/12/20 12:42 Tylenol PO 650 mg Q4HR PRN Administration Pain or Fever > 38C (100.4F) Albuterol 2.5 mg 01/10/20 11:53 01/13/20 02:33 INH 2.5 mg RTQ4H PRN Administration Wheezing Albuterol/Ipratropium 3 ml 01/10/20 15:00 01/13/20 11:15 Duoneb INH 3 ml RTQID ALFREDO Administration Gabapentin 1,200 mg 01/11/20 10:04 01/12/20 20:47 Neurontin PO 1,200 mg QPM ALFREDO Administration Guaifenesin 600 mg 01/10/20 21:00 01/13/20 08:49 Mucinex PO 600 mg BID ALFREDO Administration Cefepime HCl 2 gm/ Sodium 100 mls @ 200 mls/hr 01/12/20 10:00 01/13/20 06:05 Chloride IV Infused TID ALFREDO Infusion Metronidazole 500 mg in 100 mls @ 100 mls/hr 01/12/20 14:00 01/13/20 07:10 Flagyl 500 Mg/100 Ml IV Infused Q8H ALFREDO Infusion Lactobacillus Rhamnosus 1 cap 01/11/20 16:00 01/13/20 08:49 Culturelle PO 1 cap DAILY ALFREDO Administration Metoprolol Succinate 100 mg 01/12/20 09:00 01/13/20 08:49 Toprol Xl PO 100 mg DAILY ALFREDO Administration Sodium Chloride 10 ml 01/10/20 17:00 01/12/20 19:56 Normal Saline Flush 0.9% IVP 10 ml 0100,0900,1700 ALFREDO Administration Sodium Chloride 10 ml 01/10/20 11:43 01/13/20 06:07 Normal Saline Flush 0.9% IVP 10 ml PRN PRN Administration NEEDED PER PROVIDER ORDERS - Lab Result Fish Bone Diagrams: 01/13/20 04:32 01/13/20 04:32 - Additional Planning My Orders: My Active Orders 01/13/20 08:39 Isolation - Discontinue [RC] .once 01/13/20 08:52 Miscellaneous Laboratory Order [LAB] Urgent 01/13/20 10:46 Chest 1 View X-Ray [XR] Stat 01/13/20 11:33 Morphine Inj (Carpuject) [Morphine (Carpuject)] 1 mg IVP Q4HR PRN 01/13/20 12:00 Vancomycin Inj [Vancomycin] 1 gm Vancomycin Inj 500 mg Sodium Chloride 0.9% [Normal Saline 0.9%] 500 ml IV Q18H 01/13/20 21:00 Chlorhexidine [Peridex] 15 ml PO BID Subjective - Subjective Patient Reports: Shortness of Breath (He is very tachypneic, requesting morphine, requesting that thoracentesis which was discussed yesterday.) Objective Vital Signs: Vital Signs - 24 hr 01/12/20 01/12/20 01/12/20 12:00 13:24 16:23 Temperature 36.7 C 36.5 C Heart Rate 105 H Heart Rate [ 102 H 105 H Monitoring electrodes] Respiratory 21 20 23 Rate Blood Pressure 112/101 H 149/111 H [Left Brachial artery] O2 Saturation 94 95 01/12/20 01/12/20 01/12/20 19:31 19:41 20:22 Temperature 36.7 C Heart Rate 99 Heart Rate [ 102 H 97 Monitoring electrodes] Respiratory 20 22 14 Rate Blood Pressure 162/113 H 136/93 H [Left Brachial artery] O2 Saturation 93 97 01/12/20 01/13/20 01/13/20 22:05 01:07 02:33 Temperature Heart Rate 104 H Heart Rate [ 108 H 93 Monitoring electrodes] Respiratory 14 13 16 Rate Blood Pressure 148/82 H 105/76 [Left Brachial artery] O2 Saturation 97 96 01/13/20 01/13/20 01/13/20 05:00 07:02 09:00 Temperature 36.7 C Heart Rate 109 H Heart Rate [ 104 H 113 H Monitoring electrodes] Respiratory 16 18 22 Rate Blood Pressure 140/89 H 122/91 H [Left Brachial artery] O2 Saturation 96 97 01/13/20 11:15 Temperature Heart Rate 109 H Heart Rate [ Monitoring electrodes] Respiratory 22 Rate Blood Pressure [Left Brachial artery] O2 Saturation Oxygen O2 Source Nasal cannula Oxygen Flow Rate 4 I&O (Last 24 Hrs): Intake and Output Totals x24h 01/11/20 01/12/20 01/13/20 23:59 23:59 23:59 Intake Total 4476.667 4711.667 1040 Output Total 2 2600 Balance 4474.667 4711.667 -1560 General: Alert, Other (Slow, nearly slurred speech.) HEENT: Mucous membr. moist/pink, Other (Poor dentition, gums are very receding.) Neck: Supple Neuro: Alert, Other (Slow and nearly slurred speech, Non-focal otherwise) Cardiovascular: No murmurs, Other (Irregular, distant heart sounds.) Respiratory: Other (Diminished breath sounds in all locations, anteriorly. No wheezing or rub is heard.) Abdomen: Soft Extremities: No edema Skin: No rashes (Normal color.) - Results Results: Laboratory Results WBC 19.2 x10^3/uL (4.8-10.8) H 01/13/20 04:32 RBC 5.15 10^6/uL (4.70-6.10) 01/13/20 04:32 Hgb 17.8 g/dL (14.0-18.0) 01/13/20 04:32 Hct 51.3 % (42.0-52.0) 01/13/20 04:32 MCV 99.6 fL (80.0-94.0) H 01/13/20 04:32 MCH 34.6 pg (27.0-31.0) H 01/13/20 04:32 MCHC 34.7 g/dL (32.0-36.0) 01/13/20 04:32 RDW 12.8 % (12.0-15.0) 01/13/20 04:32 Plt Count 282 10^3/uL (130-450) 01/13/20 04:32 MPV 11.1 fL (7.4-11.4) 01/13/20 04:32 Neut # (Auto) Not Reportable 01/13/20 04:32 Lymph # (Auto) Not Reportable 01/13/20 04:32 Bell # (Auto) Not Reportable 01/13/20 04:32 Eos # (Auto) Not Reportable 01/13/20 04:32 Baso # (Auto) Not Reportable 01/13/20 04:32 Absolute Nucleated RBC Not Reportable 01/13/20 04:32 Total Counted 100 01/13/20 04:32 Band Neuts % (Manual) 4 % (0-10) 01/13/20 04:32 Reactive Lymphs % (Man) 9 % 01/13/20 04:32 Abnorm Lymph % (Manual) 0 % 01/13/20 04:32 Myelocytes % 3 % (-0) H 01/13/20 04:32 Nucleated RBC % Not Reportable 01/13/20 04:32 Neutrophils # (Manual) 15.2 10^3/uL (1.5-6.6) H 01/13/20 04:32 Lymphocytes # (Manual) 2.3 10^3/uL (1.5-3.5) 01/13/20 04:32 Monocytes # (Manual) 1.2 10^3/uL (0.0-1.0) H 01/13/20 04:32 Eosinophils # (Manual) 0.0 10^3/uL (0-0.7) 01/13/20 04:32 Basophils # (Manual) 0.0 10^3/uL (0-0.1) 01/13/20 04:32 Differential Comment MANUAL DIFFERENTIAL 01/13/20 04:32 Manual Slide Review Indicated 01/13/20 04:32 WBC Morphology NORMAL APPEARANCE (NORMAL) 01/11/20 05:15 Platelet Estimate NORMAL (130-450,000) (NORMAL) 01/12/20 04:35 Platelet Morphology NORMAL APPEARANCE (NORMAL) 01/11/20 05:15 RBC Morph Micro Appear NORMAL APPEARANCE (NORMAL) 01/12/20 04:35 PT 14.2 secs (9.9-12.6) H 01/10/20 10:20 INR 1.3 (0.8-1.2) H 01/10/20 10:20 Whole Blood INR 1.1 (0.8-1.2) 01/13/20 08:58 VBG pH 7.340 (7.31-7.41) 01/11/20 07:51 Ionized Calcium 1.19 mmol/L (1.15-1.33) 01/11/20 07:51 Sodium 132 mmol/L (135-145) L 01/13/20 04:32 Potassium 5.0 mmol/L (3.5-5.0) 01/13/20 04:32 Chloride 98 mmol/L (101-111) L 01/13/20 04:32 Carbon Dioxide 22 mmol/L (21-32) 01/13/20 04:32 Anion Gap 12.0 (6-13) 01/13/20 04:32 BUN 22 mg/dL (6-20) H 01/13/20 04:32 Creatinine 1.3 mg/dL (0.6-1.2) H 01/13/20 04:32 Estimated GFR (MDRD) 55 (>89) L 01/13/20 04:32 Glucose 145 mg/dL (70-100) H 01/13/20 04:32 Glycated Hemoglobin 6.0 % (4.6-6.2) 01/12/20 04:35 Estim Average Glucose 126 (70-100) H 01/12/20 04:35 Lactic Acid 2.3 mmol/L (0.5-2.2) H 01/12/20 04:35 Calcium 8.7 mg/dL (8.5-10.3) 01/13/20 04:32 Phosphorus 3.2 mg/dL (2.5-4.6) 01/11/20 05:15 Magnesium 2.0 mg/dL (1.7-2.8) 01/11/20 05:15 Total Bilirubin 2.0 mg/dL (0.2-1.0) H 01/10/20 10:20 AST 42 IU/L (10-42) 01/10/20 10:20 ALT 22 IU/L (10-60) 01/10/20 10:20 Alkaline Phosphatase 60 IU/L (42-121) 01/10/20 10:20 CK-MB (CK-2) 13.1 ng/mL (0.6-6.3) H 01/10/20 13:38 Troponin I High Sens 12.1 ng/L (2.3-19.7) 01/11/20 09:47 B-Natriuretic Peptide 210 pg/mL (5-100) H 01/10/20 10:20 Total Protein 7.3 g/dL (6.7-8.2) 01/10/20 10:20 Albumin 4.2 g/dL (3.2-5.5) 01/10/20 10:20 Globulin 3.1 g/dL (2.1-4.2) 01/10/20 10:20 Albumin/Globulin Ratio 1.4 (1.0-2.2) 01/10/20 10:20 Lipase 79 U/L (22-51) H 01/10/20 10:20 TSH 2.91 uIU/mL (0.34-5.60) 01/13/20 04:30 Urine Color YELLOW 01/11/20 21:45 Urine Clarity CLEAR (CLEAR) 01/11/20 21:45 Urine pH 6.0 PH (5.0-7.5) 01/11/20 21:45 Ur Specific [place] 1.010 (1.002-1.030) 01/11/20 21:45 Urine Protein NEGATIVE mg/dL (NEGATIVE) 01/11/20 21:45 Urine Glucose (UA) NEGATIVE mg/dL (NEGATIVE) 01/11/20 21:45 Urine Ketones NEGATIVE mg/dL (NEGATIVE) 01/11/20 21:45 Urine Occult Blood NEGATIVE (NEGATIVE) 01/11/20 21:45 Urine Nitrite NEGATIVE (NEGATIVE) 01/11/20 21:45 Urine Bilirubin NEGATIVE (NEGATIVE) 01/11/20 21:45 Urine Urobilinogen 0.2 (NORMAL) E.U./dL (NORMAL) 01/11/20 21:45 Ur Leukocyte Esterase NEGATIVE (NEGATIVE) 01/11/20 21:45 Urine RBC None Seen /HPF (0-5) 01/11/20 21:45 Urine WBC 0-3 /HPF (0-3) 01/11/20 21:45 Ur Squamous Epith Cells RARE Squamous (<= Few) 01/11/20 21:45 Urine Bacteria None Seen /HPF (None Seen) 01/11/20 21:45 Urine Mucus Few Strands 01/11/20 21:45 Urine Culture Comments NOT INDICATED 01/11/20 21:45 Fluid Source PLEURAL 01/10/20 10:48 Fluid Color BLOODY 01/10/20 10:48 Fluid Clarity BLOODY 01/10/20 10:48 Fluid WBC 1075 /mm^3 01/10/20 10:48 Fluid RBC 30539 /mm^3 01/10/20 10:48 Fluid Neutrophils % 10 % 01/10/20 10:48 Fluid Lymphocytes % 55 % 01/10/20 10:48 Fluid Monocytes % 3 % 01/10/20 10:48 Fluid Macrophages % 32 % 01/10/20 10:48 Nasal Screen MRSA (PCR) NEGATIVE (NEGATIVE) 01/10/20 12:50 Last Dose Date 01/11/20 01/12/20 11:33 Last Dose Time 1600 01/12/20 11:33 Vancomycin Trough 10.9 ug/mL (10.0-20.0) 01/12/20 11:33 Coronavirus (PCR) NEGATIVE 01/10/20 12:20 Ref Lab Test Result REPORT 01/10/20 11:40
[2020-01-13] MEDS: SODIUM CHLORIDE FLUSH 0.9% 10 ML SYRINGE IVP SCH ×2 (11:45→20:45)
[2020-01-13] MEDS ORDERED: LEVALBUTEROL 1.25 MG/3 ML NEB INH PRN (11:49)
[2020-01-13] MEDS: VANCOMYCIN INJ 1 GM, VANCOMYCIN INJ 500 MG in SODIUM CHLORIDE 0.9% 500 ML IV SCH (11:54)
--- NOTE | 2020-01-13 12:17 | XRAY Report ---
Reason: post thoracentesis Procedure Date: 01/13/2020 Accession Number: [id number] / [id number] Procedure: XR - Chest 1 View X-Ray CPT Code: 66760 Final Report FULL RESULT: PROCEDURE: Chest 1 View X-Ray INDICATIONS: post thoracentesis TECHNIQUE: One view of the chest was acquired. COMPARISON: 01/12/2020 FINDINGS: Surgical changes and devices: None. Lungs and pleura: Patchy opacity noted in the right lung base. Small right-sided pleural fluid collection decreased in size compared to prior examination. Mediastinum: Mediastinal contours appear normal. Heart size is normal. Bones and chest wall: No suspicious bony lesions. Overlying soft tissues appear unremarkable. IMPRESSION: No pneumothorax following thoracentesis. Reviewed by: Pearl La MD, PhD on 01/13/2020 12:15 PM PDT Approved by: Pearl La MD, PhD on 01/13/2020 12:15 PM PDT Station ID: [id number]
[2020-01-13] MEDS: CHLORHEXIDINE GLUCONATE 15 ML UDC PO SCH (20:42)
[2020-01-13] MEDS: GABAPENTIN 400 MG CAPSULE PO SCH (20:42)
[2020-01-14] MEDS: SODIUM CHLORIDE FLUSH 0.9% 10 ML SYRINGE IVP SCH ×3 (02:32→17:01)
[2020-01-14] MEDS: metroNIDAZOLE 500 MG/100 ML 500 MG/100 ML BAG IV SCH ×3 (07:07→22:45)
[2020-01-14] MEDS: CEFEPIME 2 GM in SODIUM CHLORIDE 0.9% MINIBAG 100 ML IV SCH ×4 (07:07→22:10)
[2020-01-14] MEDS: VANCOMYCIN INJ 1 GM, VANCOMYCIN INJ 500 MG in SODIUM CHLORIDE 0.9% 500 ML IV SCH (07:08)
[2020-01-14] MEDS: IPRATROPIUM/ALBUTEROL 3 ML NEB INH SCH ×4 (07:44→21:02)
--- NOTE | 2020-01-14 08:08 | CONSULTATION NOTE ---
Consultation Report: Call to [phone] for IV placement after failed attempts following IV infiltration. 20ga 1.88" cath placed at R FA with US attempt x1. Easily aspirates and flushes. Secured with tegaderm. Pt tolerated procedure without complication or complaint
[2020-01-14] MEDS: SODIUM CHLORIDE 0.9% 500 ML IV PRN (08:18)
[2020-01-14 08:20] LABS: BASOPHILS # (AUTO) 0.1 10^3/uL (0.0-0.1); BASOPHILS % (AUTO) 0.5 %; EOSINOPHILS % (AUTO) 0.1 %; HGB - HEMOGLOBIN 17.6 g/dL (14.0-18.0); LYMPHOCYTES # (AUTO) 2.2 10^3/uL (1.5-3.5); LYMPHOCYTES % (AUTO) 11.3 %; MEAN CORPUSCULAR HGB CONC 35.1 g/dL (32.0-36.0); MEAN CORPUSCULAR VOLUME 96.9 fL (80.0-94.0); MEAN PLATELET VOLUME 10.1 fL (7.4-11.4); MONOCYTES # (AUTO) 1.4 10^3/uL (0.0-1.0); MONOCYTES % (AUTO) 7.2 %; NEUTROPHILS # (AUTO) 15.1 10^3/uL (1.5-6.6); NEUTROPHILS % (AUTO) 77.4 %; PLT - PLATELET COUNT 262 10^3/uL (130-450); RED BLOOD COUNT 5.17 10^6/uL (4.70-6.10); RED CELL DISTRIBUTION WIDTH 12.5 % (12.0-15.0); WHITE BLOOD COUNT 19.4 x10^3/uL (4.8-10.8)
[2020-01-14] MEDS: SODIUM CHLORIDE FLUSH 0.9% 10 ML SYRINGE IVP PRN ×2 (08:24→08:37)
[2020-01-14 08:28] LABS: ALBUMIN/GLOBULIN RATIO 1.2 (1.0-2.2); BILIRUBIN,TOTAL 1.1 mg/dL (0.2-1.0); CALCIUM 8.7 mg/dL (8.5-10.3); CREATININE 1.3 mg/dL (0.6-1.2); MAGNESIUM 1.9 mg/dL (1.7-2.8); PHOSPHORUS 3.8 mg/dL (2.5-4.6); TOTAL PROTEIN 5.6 g/dL (6.7-8.2)
[2020-01-14] MEDS: MORPHINE 2 MG/ML CARPUJECT IVP PRN ×3 (08:34→20:59)
[2020-01-14] MEDS: METOPROLOL SUCCINATE 50 MG TABLET PO SCH (08:43)
[2020-01-14] MEDS: LACTOBACILLUS RHAMNOSUS GG CAPSULE PO SCH (08:44)
[2020-01-14] MEDS: CHLORHEXIDINE GLUCONATE 15 ML UDC PO SCH ×2 (08:44→22:12)
[2020-01-14] MEDS: guaiFENesin 600 MG TABLET PO SCH ×2 (08:44→21:00)
[2020-01-14 08:45] LABS: PLATELET ESTIMATE, MANUAL NORMAL (130-450,000) (NORMAL); PLATELET MORPHOLOGY NORMAL APPEARANCE (NORMAL); RBC MORPHOLOGY (MULTIPLE) NORMAL APPEARANCE (NORMAL)
--- NOTE | 2020-01-14 09:07 | XRAY Report ---
PROCEDURE: Chest 1 View X-Ray INDICATIONS: SOB TECHNIQUE: One view of the chest was acquired. COMPARISON: Chest x-ray 01/13/2020, 01/10/2020, CT 01/12/2020 FINDINGS: Surgical changes and devices: None. Lungs and pleura: There is a persistent appearance of increased pulmonary vascularity, mildly increa sed. Mild to moderate right effusion is present, unchanged. Mediastinum: Mediastinal contours appear normal. Heart size is normal. Bones and chest wall: No suspicious bony lesions. Overlying soft tissues appear unremarkable. IMPRESSION: Mild increased appearance of increased vascularity suggestive of edema. Persistent mild to moderate r ight effusion without appreciable interval change. Reviewed by: Amanda Kennedy MD on 01/14/2020 9:05 AM PDT Approved by: Amanda Kennedy MD on 01/14/2020 9:05 AM PDT Station ID: [id number]
[2020-01-14] MEDS ORDERED: DILTIAZEM 50 MG/10 ML VIAL IVP ONE (09:44)
[2020-01-14] MEDS ORDERED: FUROSEMIDE 20 MG/2 ML VIAL IVP ONE (09:46)
--- NOTE | 2020-01-14 09:57 | PROVIDER PROGRESS NOTE ---
Assessment/Plan - Problem List (1) Pleural effusion Assessment/Plan: Today's portable chest x-ray shows only minimal increase in the size of the pleural effusion, after 2.5 L were removed by thoracentesis by Interventional Radiology yesterday. When he had the first thoracentesis of 3.5 L done in the ER at admission several days ago, that fluid was also bloody, is showing negative cytology for malignant cells and it is an exudate. Remain in ICU today. Morphine as needed when he has air hunger. (2) Atrial flutter with rapid ventricular response Assessment/Plan: Today his heart rate in atrial flutter is faster than yesterday, now in the 110- 140 range. He has pre-renal azotemia but CXR today shows vascular congestion. The TSH is normal and troponins were normal when he went into Aflutter several days ago. The Echo done this admission shows normal LV size and normal LVEF. P.o. metoprolol will be increased from 100 mg in a.m. to dose of 100 mg in a.m. and 50 mg in p.m. Cardizem IV bolus x1 ordered also, for rate control. He cannot get anticoagulants because of having a bloody pleural effusion. (3) Community acquired pneumonia Assessment/Plan: The COVID swab was negative. He was started on empiric Zithromax and iv Ceftriaxone. He makes no sputum to send for culture. He is on Mucinex to help pulmonary toilet plus an Acapella flutter valve. He is also getting nebs as needed Blood cultures are negative to date. IV antibiotics were widened 3 days ago because of persistent elevated white count and reaccumulation of pleural effusion. He is also on probiotics. (4) Mass of right lung Assessment/Plan: Patient initially did not want a CT scan, stating he did not want to treat any cancer if it was there. He eventually agreed. The CT scan shows an ill-defined mass in the right side which could be tumor or infiltrate like a postobstructive pneumonia. The patient may need transfer for bronchoscopy and management of recurrence of pleural effusion. I informed him of that today. (5) Hyponatremia Assessment/Plan: Persistent mild hyponatremia, probably due to decreased p.o. intake and presence of pulmonary pathology. Follow BMP daily. (6) Acute kidney injury Assessment/Plan: There is been a slow increase in his BUN/creatinine. Today he does need IV Lasix because of the vascular congestion on chest x-ray. Vancomycin will be discontinued. Monitor BM P daily. (7) Leukocytosis Assessment/Plan: This is persistent at 19-20K for the last several days. His IV antibiotics were broadened from empiric Zithromax and ceftriaxone to IV vancomycin, cefepime and Flagyl several days ago. The Vanco will be discontinued (Pharmacy recommendation), since he is MRSA negative and Cefipime covers gram positive bacteria. (8) Hypertension Assessment/Plan: His home metoprolol has been continued. The lisinopril has never been restarted, in order to use higher doses of heart rate slowing medicines and because of the worsening creatinine. (9) Poor dentition Assessment/Plan: He has visibly severely receding gums. Yesterday the patient told me that he has not eaten well or brushed his teeth in 2-1/2 weeks because he was so weak and fatigued. Oral care has been ordered including Peridex swish and spit. - Current Meds Current Meds: Current Medications Generic Name Dose Route Start Last Admin Trade Name Freq PRN Reason Stop Dose Admin Acetaminophen 650 mg 01/10/20 11:43 01/12/20 12:42 Tylenol PO 650 mg Q4HR PRN Administration Pain or Fever > 38C (100.4F) Albuterol/Ipratropium 3 ml 01/10/20 15:00 01/14/20 07:44 Duoneb INH 3 ml RTQID ALFREDO Administration Chlorhexidine Gluconate 15 ml 01/13/20 21:00 01/14/20 08:44 Peridex PO 15 ml BID ALFREDO Administration Gabapentin 1,200 mg 01/11/20 10:04 01/13/20 20:42 Neurontin PO 1,200 mg QPM ALFREDO Administration Guaifenesin 600 mg 01/10/20 21:00 01/14/20 08:44 Mucinex PO 600 mg BID ALFREDO Administration Cefepime HCl 2 gm/ Sodium 100 mls @ 200 mls/hr 01/14/20 08:00 01/14/20 08:45 Chloride IV Infused TID ALFREDO Infusion Sodium Chloride 500 mls @ 0 mls/hr 01/14/20 08:00 01/14/20 08:49 Normal Saline 0.9% IV 30 mls/hr Q24H PRN Infusion TKO RATE TKO Lactobacillus Rhamnosus 1 cap 01/11/20 16:00 01/14/20 08:44 Culturelle PO 1 cap DAILY ALFREDO Administration Metoprolol Succinate 100 mg 01/14/20 08:02 01/14/20 08:43 Toprol Xl PO 100 mg 0800 ALFREDO Administration Morphine Sulfate 1 mg 01/13/20 11:33 01/14/20 08:34 Morphine (Carpuject) IVP 1 mg Q4HR PRN Administration Dyspnea Sodium Chloride 10 ml 01/10/20 17:00 01/14/20 09:26 Normal Saline Flush 0.9% IVP Not Given 0100,0900,1700 ALFREDO Sodium Chloride 10 ml 01/10/20 11:43 01/14/20 08:37 Normal Saline Flush 0.9% IVP 10 ml PRN PRN Administration NEEDED PER PROVIDER ORDERS - Lab Result Fish Bone Diagrams: 01/14/20 08:08 01/14/20 08:08 - Additional Planning My Orders: My Active Orders 01/13/20 11:33 Morphine Inj (Carpuject) [Morphine (Carpuject)] 1 mg IVP Q4HR PRN 01/13/20 11:49 Resp Teach Nebulizer/MDI [RC] .ONCE Levalbuterol [Xopenex] 1.25 mg INH Q4H PRN 01/13/20 21:00 Chlorhexidine [Peridex] 15 ml PO BID 01/14/20 08:00 Sodium Chloride 0.9% [Normal Saline 0.9%] 500 ml IV Q24H 01/14/20 08:02 Metoprolol Succinate [Toprol Xl] 100 mg PO 0800 01/14/20 08:08 BNP - B-NATRIURETIC PEPTIDE [IAI] Routine 01/14/20 21:00 Metoprolol Succinate [Toprol Xl] 50 mg PO QPM 01/15/20 05:00 BMP - BASIC METABOLIC PANEL [CHEM] DAILYLAB CBC - COMP BLD CT W/AUTO DIFF [HEME] DAILYLAB 01/16/20 05:00 BMP - BASIC METABOLIC PANEL [CHEM] DAILYLAB CBC - COMP BLD CT W/AUTO DIFF [HEME] DAILYLAB 01/17/20 05:00 BMP - BASIC METABOLIC PANEL [CHEM] DAILYLAB CBC - COMP BLD CT W/AUTO DIFF [HEME] DAILYLAB Subjective - Subjective Patient Reports: Shortness of Breath (He feels that his "breathing is more labored" but he is not having pain or sweating which is what was happening at home and when he reaccumulated the effusion here.) Objective Vital Signs: Vital Signs - 24 hr 01/13/20 01/13/20 01/13/20 10:45 11:15 13:00 Temperature 36.3 C L 36.3 C L Heart Rate 109 H Heart Rate [ 95 94 Monitoring electrodes] Respiratory 20 22 17 Rate Blood Pressure 110/82 H 120/90 H [Left Brachial artery] O2 Saturation 95 96 01/13/20 01/13/20 01/13/20 15:14 17:00 19:15 Temperature 36.1 C L Heart Rate 112 H 108 H Heart Rate [ 107 H Monitoring electrodes] Respiratory 18 22 16 Rate Blood Pressure 153/101 H [Left Brachial artery] O2 Saturation 94 01/13/20 01/14/20 01/14/20 20:09 00:31 05:00 Temperature 36.3 C L 36.4 C L 36.6 C Heart Rate Heart Rate [ 98 102 H 106 H Monitoring electrodes] Respiratory 18 13 21 Rate Blood Pressure 122/81 H 154/72 H [Left Brachial artery] O2 Saturation 96 94 96 01/14/20 01/14/20 01/14/20 07:54 08:00 09:00 Temperature 36.3 C L Heart Rate 112 H Heart Rate [ 123 H 135 H Monitoring electrodes] Respiratory 20 23 Rate Blood Pressure 114/85 H [Left Brachial artery] O2 Saturation 95 01/14/20 09:36 Temperature Heart Rate Heart Rate [ 121 H Monitoring electrodes] Respiratory 19 Rate Blood Pressure 131/75 H [Left Brachial artery] O2 Saturation 100 Oxygen O2 Source Nasal cannula Oxygen Flow Rate 4 I&O (Last 24 Hrs): Intake and Output Totals x24h 01/12/20 01/13/20 01/14/20 23:59 23:59 23:59 Intake Total 4711.667 2180 701 Output Total 2600 Balance 4711.667 -420 701 General: Alert, Oriented x3 HEENT: Atraumatic, Mucous membr. moist/pink Neck: Supple Neuro: Alert, Non Focal Cardiovascular: Other (Irreg and tachy) Respiratory: Other (Diminished diffusely, per RN) Abdomen: Soft Extremities: No edema - Results Results: Laboratory Results WBC 19.4 x10^3/uL (4.8-10.8) H 01/14/20 08:08 RBC 5.17 10^6/uL (4.70-6.10) 01/14/20 08:08 Hgb 17.6 g/dL (14.0-18.0) 01/14/20 08:08 Hct 50.1 % (42.0-52.0) 01/14/20 08:08 MCV 96.9 fL (80.0-94.0) H 01/14/20 08:08 MCH 34.0 pg (27.0-31.0) H 01/14/20 08:08 MCHC 35.1 g/dL (32.0-36.0) 01/14/20 08:08 RDW 12.5 % (12.0-15.0) 01/14/20 08:08 Plt Count 262 10^3/uL (130-450) 01/14/20 08:08 MPV 10.1 fL (7.4-11.4) 01/14/20 08:08 Neut # (Auto) 15.1 10^3/uL (1.5-6.6) H 01/14/20 08:08 Lymph # (Auto) 2.2 10^3/uL (1.5-3.5) 01/14/20 08:08 Bleckley # (Auto) 1.4 10^3/uL (0.0-1.0) H 01/14/20 08:08 Eos # (Auto) 0.0 10^3/uL (0.0-0.7) 01/14/20 08:08 Baso # (Auto) 0.1 10^3/uL (0.0-0.1) 01/14/20 08:08 Absolute Nucleated RBC 0.00 x10^3/uL 01/14/20 08:08 Total Counted 100 01/13/20 04:32 Band Neuts % (Manual) 4 % (0-10) 01/13/20 04:32 Reactive Lymphs % (Man) 9 % 01/13/20 04:32 Abnorm Lymph % (Manual) 0 % 01/13/20 04:32 Myelocytes % 3 % (-0) H 01/13/20 04:32 Nucleated RBC % 0.0 /100WBC 01/14/20 08:08 Neutrophils # (Manual) 15.2 10^3/uL (1.5-6.6) H 01/13/20 04:32 Lymphocytes # (Manual) 2.3 10^3/uL (1.5-3.5) 01/13/20 04:32 Monocytes # (Manual) 1.2 10^3/uL (0.0-1.0) H 01/13/20 04:32 Eosinophils # (Manual) 0.0 10^3/uL (0-0.7) 01/13/20 04:32 Basophils # (Manual) 0.0 10^3/uL (0-0.1) 01/13/20 04:32 Differential Comment MANUAL DIFFERENTIAL 01/13/20 04:32 Manual Slide Review Indicated 01/14/20 08:08 WBC Morphology NORMAL APPEARANCE (NORMAL) 01/14/20 08:08 Platelet Estimate NORMAL (130-450,000) (NORMAL) 01/14/20 08:08 Platelet Morphology NORMAL APPEARANCE (NORMAL) 01/14/20 08:08 RBC Morph Micro Appear NORMAL APPEARANCE (NORMAL) 01/14/20 08:08 PT 14.2 secs (9.9-12.6) H 01/10/20 10:20 INR 1.3 (0.8-1.2) H 01/10/20 10:20 Whole Blood INR 1.1 (0.8-1.2) 01/13/20 08:58 VBG pH 7.340 (7.31-7.41) 01/11/20 07:51 Ionized Calcium 1.19 mmol/L (1.15-1.33) 01/11/20 07:51 Sodium 133 mmol/L (135-145) L 01/14/20 08:08 Potassium 4.6 mmol/L (3.5-5.0) 01/14/20 08:08 Chloride 99 mmol/L (101-111) L 01/14/20 08:08 Carbon Dioxide 21 mmol/L (21-32) 01/14/20 08:08 Anion Gap 13.0 (6-13) 01/14/20 08:08 BUN 27 mg/dL (6-20) H 01/14/20 08:08 Creatinine 1.3 mg/dL (0.6-1.2) H 01/14/20 08:08 Estimated GFR (MDRD) 55 (>89) L 01/14/20 08:08 Glucose 152 mg/dL (70-100) H 01/14/20 08:08 Glycated Hemoglobin 6.0 % (4.6-6.2) 01/12/20 04:35 Estim Average Glucose 126 (70-100) H 01/12/20 04:35 Lactic Acid 2.3 mmol/L (0.5-2.2) H 01/12/20 04:35 Calcium 8.7 mg/dL (8.5-10.3) 01/14/20 08:08 Phosphorus 3.8 mg/dL (2.5-4.6) 01/14/20 08:08 Magnesium 1.9 mg/dL (1.7-2.8) 01/14/20 08:08 Total Bilirubin 1.1 mg/dL (0.2-1.0) H 01/14/20 08:08 AST 29 IU/L (10-42) 01/14/20 08:08 ALT 17 IU/L (10-60) 01/14/20 08:08 Alkaline Phosphatase 49 IU/L (42-121) 01/14/20 08:08 CK-MB (CK-2) 13.1 ng/mL (0.6-6.3) H 01/10/20 13:38 Troponin I High Sens 12.1 ng/L (2.3-19.7) 01/11/20 09:47 B-Natriuretic Peptide 210 pg/mL (5-100) H 01/10/20 10:20 Total Protein 5.6 g/dL (6.7-8.2) L 01/14/20 08:08 Albumin 3.0 g/dL (3.2-5.5) L 01/14/20 08:08 Globulin 2.6 g/dL (2.1-4.2) 01/14/20 08:08 Albumin/Globulin Ratio 1.2 (1.0-2.2) 01/14/20 08:08 Lipase 79 U/L (22-51) H 01/10/20 10:20 TSH 2.91 uIU/mL (0.34-5.60) 01/13/20 04:30 Urine Color YELLOW 01/11/20 21:45 Urine Clarity CLEAR (CLEAR) 01/11/20 21:45 Urine pH 6.0 PH (5.0-7.5) 01/11/20 21:45 Ur Specific [place] 1.010 (1.002-1.030) 01/11/20 21:45 Urine Protein NEGATIVE mg/dL (NEGATIVE) 01/11/20 21:45 Urine Glucose (UA) NEGATIVE mg/dL (NEGATIVE) 01/11/20 21:45 Urine Ketones NEGATIVE mg/dL (NEGATIVE) 01/11/20 21:45 Urine Occult Blood NEGATIVE (NEGATIVE) 01/11/20 21:45 Urine Nitrite NEGATIVE (NEGATIVE) 01/11/20 21:45 Urine Bilirubin NEGATIVE (NEGATIVE) 01/11/20 21:45 Urine Urobilinogen 0.2 (NORMAL) E.U./dL (NORMAL) 01/11/20 21:45 Ur Leukocyte Esterase NEGATIVE (NEGATIVE) 01/11/20 21:45 Urine RBC None Seen /HPF (0-5) 01/11/20 21:45 Urine WBC 0-3 /HPF (0-3) 01/11/20 21:45 Ur Squamous Epith Cells RARE Squamous (<= Few) 01/11/20 21:45 Urine Bacteria None Seen /HPF (None Seen) 01/11/20 21:45 Urine Mucus Few Strands 01/11/20 21:45 Urine Culture Comments NOT INDICATED 01/11/20 21:45 Fluid Source PLEURAL 01/10/20 10:48 Fluid Color BLOODY 01/10/20 10:48 Fluid Clarity BLOODY 01/10/20 10:48 Fluid WBC 1075 /mm^3 01/10/20 10:48 Fluid RBC 58755 /mm^3 01/10/20 10:48 Fluid Neutrophils % 10 % 01/10/20 10:48 Fluid Lymphocytes % 55 % 01/10/20 10:48 Fluid Monocytes % 3 % 01/10/20 10:48 Fluid Macrophages % 32 % 01/10/20 10:48 Nasal Screen MRSA (PCR) NEGATIVE (NEGATIVE) 01/10/20 12:50 Last Dose Date 01/11/20 01/12/20 11:33 Last Dose Time 1600 01/12/20 11:33 Vancomycin Trough 10.9 ug/mL (10.0-20.0) 01/12/20 11:33 Coronavirus (PCR) NEGATIVE 01/10/20 12:20 Ref Lab Test Result REPORT 01/10/20 11:40
[2020-01-14] MEDS: ACETAMINOPHEN 325 MG TABLET PO PRN ×2 (10:34→22:52)
[2020-01-14] MEDS ORDERED: METOPROLOL SUCCINATE 50 MG TABLET PO SCH (21:00)
[2020-01-14] MEDS: GABAPENTIN 400 MG CAPSULE PO SCH (21:00)
[2020-01-15] MEDS: MORPHINE 2 MG/ML CARPUJECT IVP PRN ×4 (00:22→16:17)
[2020-01-15 05:23] LABS: BASOPHILS % (AUTO) 0.2 %; EOSINOPHILS # (AUTO) 0.1 10^3/uL (0.0-0.7); EOSINOPHILS % (AUTO) 0.7 %; HGB - HEMOGLOBIN 16.2 g/dL (14.0-18.0); LYMPHOCYTES # (AUTO) 2.7 10^3/uL (1.5-3.5); LYMPHOCYTES % (AUTO) 16.5 %; MEAN CORPUSCULAR HEMOGLOBIN 32.8 pg (27.0-31.0); MEAN CORPUSCULAR VOLUME 96.4 fL (80.0-94.0); MEAN PLATELET VOLUME 10.1 fL (7.4-11.4); MONOCYTES # (AUTO) 1.5 10^3/uL (0.0-1.0); MONOCYTES % (AUTO) 9.3 %; NEUTROPHILS # (AUTO) 11.4 10^3/uL (1.5-6.6); NEUTROPHILS % (AUTO) 69.2 %; PLT - PLATELET COUNT 213 10^3/uL (130-450); RED BLOOD COUNT 4.94 10^6/uL (4.70-6.10); RED CELL DISTRIBUTION WIDTH 12.6 % (12.0-15.0); WHITE BLOOD COUNT 16.4 x10^3/uL (4.8-10.8)
[2020-01-15 05:31] LABS: CALCIUM 8.4 mg/dL (8.5-10.3); CREATININE 1.2 mg/dL (0.6-1.2)
[2020-01-15] MEDS: CEFEPIME 2 GM in SODIUM CHLORIDE 0.9% MINIBAG 100 ML IV SCH ×2 (06:04→13:24)
[2020-01-15] MEDS: metroNIDAZOLE 500 MG/100 ML 500 MG/100 ML BAG IV SCH ×2 (06:46→14:03)
[2020-01-15] MEDS: IPRATROPIUM/ALBUTEROL 3 ML NEB INH SCH ×2 (07:06→12:09)
[2020-01-15] MEDS: SODIUM CHLORIDE FLUSH 0.9% 10 ML SYRINGE IVP SCH ×2 (07:15→10:22)
[2020-01-15 07:17] LABS: MAGNESIUM 1.9 mg/dL (1.7-2.8); PHOSPHORUS 3.2 mg/dL (2.5-4.6)
[2020-01-15] MEDS: METOPROLOL SUCCINATE 50 MG TABLET PO SCH (08:26)
[2020-01-15] MEDS: LACTOBACILLUS RHAMNOSUS GG CAPSULE PO SCH (08:26)
[2020-01-15] MEDS: guaiFENesin 600 MG TABLET PO SCH (08:27)
[2020-01-15] MEDS: CHLORHEXIDINE GLUCONATE 15 ML UDC PO SCH (08:28)
[2020-01-15] MEDS: SODIUM CHLORIDE 0.9% 500 ML IV PRN (08:30)
--- NOTE | 2020-01-15 09:49 | XRAY Report ---
PROCEDURE: Chest 1 View X-Ray INDICATIONS: Shortness of breath, follow-up effusion TECHNIQUE: One view of the chest was acquired. COMPARISON: 01/12/2020 chest radiograph, 01/12/[address], 01/13/2020, 01/14/2020 FINDINGS: Surgical changes and devices: None. Lungs and pleura: There is a small right-sided pleural effusion seen. There is increasing opacity see n involving the right lung base, which is slightly more prominent on the current study than on the pr ior. No pneumothorax can be seen. The left lung appears clear. Mediastinum: The aorta is prominent and tortuous. The cardiac contours are within normal limits. Bones and chest wall: No suspicious bony lesions. Age-appropriate degenerative changes are seen. Overlying soft tissues appear unremarkable. IMPRESSION: Increasing opacity seen at the right lung base, which is worrisome for developing infection. Differen tial diagnosis includes atelectasis and pulmonary edema, however. There is a stable small to moderate right-sided pleural effusion. Reviewed by: Gavin Rivers MD on 01/15/2020 8:48 AM [email or web address] Approved by: Gavin Rivers MD on 01/15/2020 8:48 AM MATILDE Station ID: [id number]
--- NOTE | 2020-01-15 10:49 | CONSULTATION NOTE ---
Consultation Report: Called to place IV for patient with history of difficult IV placement. Patient has patent #[id number] in right AC but for comfort, patient would like IV moved to non- dominant arm and not in AC. #20G IV started to left wrist x1 attempt. Patient tolerated well, IV flushed and secured with opsite.
[2020-01-15 12:39] LABS: ABG BASE EXCESS -3.8 mmol/L (-2.0-3.0); ABG HCO3 18.6 mmol/L (22.0-26.0); ABG OXYGEN SATURATION 96 % (94-98); ABG PCO2 28 mmHg (34-45); ABG PH 7.44 (7.35-7.45); ABG PO2 82 mmHg (80-100); ABG TCO2 19.5 MMOL/L (21.0-29.0); ALLEN TEST POSITIVE
[2020-01-15] MEDS: SODIUM CHLORIDE FLUSH 0.9% 10 ML SYRINGE IVP PRN ×2 (13:31→16:19)
--- NOTE | 2020-01-15 14:14 | Discharge Plan ---
Discharge Plan Problem Reviewed?: Yes Disposition: 02 Transfer Acute Care Hosp Condition: Stable No Smoking: If you smoke, Please STOP! Call for help. Follow-up with: Chanel Guerin ARNP [Primary Care Provider] -
[2020-01-15] MEDS: ACETAMINOPHEN 325 MG TABLET PO PRN (14:57)
--- NOTE | 2020-01-15 15:14 | DISCHARGE SUMMARY ---
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 He started to be short of breath 2 weeks previously without a cough or fever. In the last 2 days he developed orthopnea and pleuritic chest pain when he lays on his right side. He had to sleep sitting up. He called EMS because of severe air hunger and presented to the ER tachypneic, diaphoretic, guppy breathing with desaturations of 85% on room air. He was given nebulizers en route and 2 in the ER. A chest x-ray was done that showed nearly complete whiteout of the right lung due to a large pleural effusion. He underwent thoracentesis in the ER and 3.5 L of blood-tinged fluid was removed. A follow-up chest x-ray showed marked improvement and he had improvement in his symptoms. The patient dropped his blood pressure to 97 systolic and was admitted to the ICU for management of possible community-acquired pneumonia with large right pleural effusion causing acute respiratory failure with hypoxia and hypotension. We discussed care wishes and he wants to be a DNR. - HOSPITAL COURSE Hospital Course: (1) Pleural effusion The fluid removed in the ER was sent for analysis and results returned revealing it was an exudate, had lymphocytic predominance, no bacteria were seen, cultures were negative, cytology showed no malignant cells. He was treated with IV antibiotics empirically. He redeveloped severe dyspnea just 48 hours later and chest x-ray showed reaccumulation of a large pleural effusion and this needed thoracentesis again, which was done in the ICU by IR. 2.5 L of blood-tinged fluid were again removed. It was sent for cytology again, the results are still pending. He got Lasix during this hospitalization. The pleural effusion started to reaccumulate even again, however not as quickly. But he became again tachypneic. An ABG done on 4 L of O2 via nasal cannula showed pH of 7.44, PCO2 28, PO2 82. It was advised that he be transferred to a hospital with higher level of care, that has nanotechnician, infectious disease and oncologist for management. The patient agreed. He was accepted in transfer by Hospitalist at [facility] and transferred in fair condition by ambulance. (2) Atrial flutter with rapid ventricular response His admission EKG showed multifocal atrial tachycardia. On the third day he developed atrial flutter with rapid ventricular rate. His home dose of metoprolol was continued and he got Lopressor iv push. Troponins were cycled and were negative. An Echo was done that showed normal LV size and normal LVEF. The oral metoprolol dose needed to be increased further and he received Cardizem IV bolus 10 mg x 1 on 01/14/20, for rapid heart rate again of 140 in atrial flutter. This converted him to sinus rhythm. (3) Community acquired pneumonia He was tested for COVID and the result was negative. The repeat chest x-ray after the first thoracentesis showed probable opacification consistent with pneumonia. He was started on empiric Zithromax and iv Ceftriaxone. He made no sputum to send for culture. Blood cultures are negative to date. He was on Mucinex plus Acapella valve was ordered to to help pulmonary toilet. He was also getting nebs as needed. The IV antibiotics were widened after 3 days to Cefepime and Zithromax because of persistent elevated white count and recurrent reaccumulations of pleural effusion. He was also on probiotics. (4) Mass of right lung Patient initially did not want a CT scan, stating he did not want to treat any cancer if it was there. He eventually agreed. The CT scan shows an ill-defined mass in the right side which could be tumor or infiltrate like a postobstructive pneumonia. There were prominent right sided lymph nodes. (5) Hyponatremia Persistent mild hyponatremia, probably due to decreased p.o. intake and may from pulmonary pathology. (6) Acute kidney injury There was a slow increase in his BUN/creatinine and he needed IV Lasix because of the vascular congestion on chest x-ray. The empiric Vanco was stopped. (7) Leukocytosis This was persistent at 19-20K for several days. His IV antibiotics were broadened from empiric Zithromax and ceftriaxone to IV vancomycin, cefepime and Flagyl for several days. The Vanco was discontinued (Pharmacy recommendation), since he is MRSA negative and Cefipime covers gram positive bacteria. (8) Hypertension His home metoprolol was continued. The lisinopril was never restarted, in order to use higher doses of heart rate slowing medicines and because of the worsening creatinine. (9) Poor dentition He has visibly severely receding gums. The patient eventually told me that he has not eaten well or brushed his teeth in 2-1/2 weeks because he was so weak and fatigued. Oral care was ordered including Peridex swish and spit. - ALLERGIES Allergies/Adverse Reactions: Allergies Allergy/AdvReac Type Severity Reaction Status Date / Time No Known Drug Allergies Allergy Verified 01/10/20 10:09 - MEDICATIONS Home Medications: Ambulatory Orders Medication Instructions Recorded Confirmed Albuterol Sulfate [Proair Hfa 17 gm INH Q4H PRN 01/10/20 01/10/20 Inhaler] Gabapentin 1,200 mg PO QPM 01/10/20 01/10/20 lisinopriL [Lisinopril] 30 mg PO DAILY 01/10/20 01/10/20 Metoprolol Succinate [Toprol Xl] 100 mg PO DAILY 01/11/20 01/11/20 - PHYSICAL EXAM AT DISCHARGE General Appearance: positive: No acute distress, Alert Eyes Bilateral: positive: Normal inspection, EOMI ENT: positive: ENT inspection nml, No signs of dehydration Neck: positive: Nml inspection, No JVD Respiratory: positive: Other (No resp distress with HOB elevated. Right chest has no breath sounds, left side clear.) Cardiovascular: positive: Regular rate & rhythm, No murmur Abdomen: positive: Non-tender, No distention Skin: positive: Color nml Extremities: positive: Non-tender, No pedal edema Neurologic/Psychiatric: positive: Oriented x3, Other (Non-focal.) - LABS Result Diagrams: 01/15/20 05:04 01/15/20 05:04 - DIAGNOSTIC IMAGING Diagnostic Imaging Results: Final report reviewed - FOLLOW UP Follow Up: This will be determined after his stay hospitalization at [facility]. - TIME SPENT Time Spent in Discharge (Minutes): 65
[2020-01-15 16:24] VITALS: BP 142/80
== END 2020-01-15 16:50 | disposition short-term general hospital (02) | DRG 180 ==
LOC: EDUNIT# → EDBD → ED 09:55 → ICU 11:43
PROVIDERS: ADMIT Internal Medicine; ATTEND Internal Medicine
PROC: 0W993ZX Drainage of Right Pleural Cavity, Percutaneous Approach, Diagnostic (ICD-10-PCS; principal; 2020-01-13)
DX: J90 Pleural effusion, not elsewhere classified (principal); J91.0 Malignant pleural effusion; R06.00 Dyspnea, unspecified; Z20.828 Contact with and (suspected) exposure to other viral communicable diseases; J18.9 Pneumonia, unspecified organism; J96.01 Acute respiratory failure with hypoxia; E87.1 Hypo-osmolality and hyponatremia; N17.9 Acute kidney failure, unspecified; I48.92 Unspecified atrial flutter; R91.8 Other nonspecific abnormal finding of lung field; J44.9 Chronic obstructive pulmonary disease, unspecified; F10.21 Alcohol dependence, in remission; I69.341 Monoplegia of lower limb following cerebral infarction affecting right dominant side; I69.328 Other speech and language deficits following cerebral infarction; I10 Essential (primary) hypertension; I95.9 Hypotension, unspecified; D72.829 Elevated white blood cell count, unspecified; G62.9 Polyneuropathy, unspecified; K06.0 Gingival recession; K58.9 Irritable bowel syndrome, unspecified; K52.9 Noninfective gastroenteritis and colitis, unspecified; Z66 Do not resuscitate; Z79.82 Long term (current) use of aspirin; Z79.51 Long term (current) use of inhaled steroids; Z79.899 Other long term (current) drug therapy; Z87.891 Personal history of nicotine dependence
CPT/HCPCS: 32555; 36415; 36600; 71045; 71260; 80048; 80053; 80202; 81001; 81599; 82330; 82553; 82803; 83036; 83605; 83690; 83735; 83880; 84100; 84443; 84484; 85025; 85610; 87070; 87150; 87205; 89051; 93005; 93306; 94640; 96374; 96375; 97161; 97530; 99291; A9270; J3370; J7120; Q9967; U0004; 87086

== ENCOUNTER 2020-01-15 16:57 | Outpatient (CLI) | payer MEDICARE | END 2020-01-15 16:58 | disposition short-term general hospital (02) | LOC: EMS 16:57 | PROVIDERS: ATTEND Surgery | DX: J90 Pleural effusion, not elsewhere classified (principal) | CPT/HCPCS: A0425; A0426 ==